=== PATIENT | male | born 1955 | race Caucasian/White ===

== ENCOUNTER 2016-04-08 12:45 | Emergency (ER) | payer OTHER ==
[2016-04-08] VITALS (7 sets, daily range): BP systolic 85–125; BP diastolic 66–90; PULSE 71–85; RESP 16–22; O2SAT 98–100
[~2016-04-08] VITALS: Ht 193 cm; Wt 69.1 kg
--- NOTE | 2016-04-08 13:15 | ED.REPORT ---
HPI-NVD Date of Service Apr 08, 2016 ED Provider: Christine Flower History of Present Illness: decreased appitete, weight loss, decreased strength. symptoms ongoing since December 2015. , lives in 1 story house. no steps. Dr. Shine is primary care. coughing forever quit smoking 7.5 years ago. Saw his partner yesterday, advised admission. Provider took pain pills away last year. now drinks vodka and smokes pot for the pain. Nursing Notes Stated Complaint: LIVER,ANEMIA,WEAKNESS Chief Complaint: Male Abdominal Pain Nursing Notes Reviewed: Yes Allergies: Coded Allergies: No Known Allergies (Unverified , 04/08/16) General Time Seen by MD: 13:14 Chief Complaint Vomiting, Other (coughing vomiting associated with cough) Hx Obtained From: Patient Onset Occurred: More than a week ago... (3 months) Symptom Duration: Since onset Past Medical History Past Medical History Denies: Diabetes mellitus Denies: Atrial fibrillation, Atrial flutter Past Surgical History knee times 3, pilondial cyst, Smoking History Former Smoker (quit smoking 7.5 years ago, still chews chewed while smoking also ) Social History vodka Alcohol Use: >5 per day Drug Use: THC Other Social History: Occupation lives with , no work or school 04/08/2016 Ambulatory Status Independent Review of Systems Basic Review of Systems Eyes: Vision NL, No discharge : No dysuria, No frequency Allergy / Immune: No allergy Psychiatric: Normal thought content Physical Exam Initial Vital Signs Vital Signs (First) Date Time Temp Pulse Resp B/P Pulse Ox O2 Delivery O2 Flow Rate FiO2 04/08/16 12:48 36.2 85 16 113/79 98 Room Air Initial VS: Reviewed, Vital signs normal Head / Eyes: Atraumatic, Normocephalic, PERRL ENT: Mucous membranes moist, Conjunctiva normal, No scleral icterus Neck: Supple, Non-tender, Full range of motion Respiratory: Breath sounds normal, Clear to auscultation, No respiratory distress Cardiovascular: Regular rate & rhythm, Heart sounds normal, Intact distal pulses Back: No CVA tenderness Lymphatic: No lymphadenopathy Extremities: Vascular intact, Neuro intact, No swelling, No tenderness Skin: Warm, Dry, No cyanosis Neurologic: Alert, Oriented, Nonfocal Psychiatric: Mood/affect normal, Behavior normal, Normal thought content General/Constitutional: Awake, Alert, No acute distress, Well appearing, Well developed, Well hydrated Appearance / Presentation: Positive: Appears older than age Abdomen: Atraumatic, Soft, Non-tender, McBurney's non-tender, No guarding, No rebound Bowel Sounds / Distention: Positive: Bowel sounds hypoactive ENT: Atraumatic, Airway patent, Mucous membranes moist, Pharynx NL Respiratory / Chest: Atraumatic, Breath sounds NL, Breath sounds = bilat Cardiovascular: Heart rate NL, Regular rhythm, Heart sounds NL, No gallop Neck: Atraumatic, Supple, No meningismus no external hemorrhoids, dark blood by rectal opening. digital exam shows reddish brown blood, Interpretation & Diagnostics Interpretation & Diagnostics: ROCEDURE: CT NECK/CHEST/ABD/PEL W/CONT ([id number]-7506) INDICATIONS: cough weight loss, anemia TECHNIQUE: After the administration of oral and intravenous contrast, 3.0 mm axial sections acquired from the sella to the aortic arch, with 3.0 mm thick coronal reformats. Additional oblique axial 3.0 mm sections acquired through the pharynx. 5 mm thick axial sections then acquired from the lung apices to the symphysis, with subsequent 5 mm thick coronal and sagittal reformats, and 7 mm thick coronal MIP reformats through the lungs. For radiation dose reduction, the following was used: automated exposure control, adjustment of mA and/or kV according to patient size. COMPARISON: None. FINDINGS: Image quality: Excellent. NECK: Lymph nodes: No enlarged lymph nodes seen throughout the neck. Vessels: Visualized vasculature appears patent. Neck spaces: The oropharynx, nasopharynx, and pharynx demonstrate no mucosal lesions. The vocal cords, false vocal cords, pyriform sinuses, epiglottis, vallecular, and tongue base all appear normal. Extramucosal neck spaces appear unremarkable. Glands: Parotid and submandibular glands appear normal. Thyroid gland is unremarkable. Miscellaneous: Visualized brain and orbits appear unremarkable. Superficial soft tissues appear normal. Visualized sinuses demonstrate near-complete opacification of the right maxillary sinus. Small mucous retention cyst versus polyp is noted within the left maxillary sinus. CHEST: Lungs and pleura: Slight appearance of groundglass opacity in the medial anterior aspect of the left lower lobe. No pleural effusions or pneumothorax. Central and peripheral airways are patent and normal in caliber. Mediastinum: Heart size is normal. No pericardial effusion. No mediastinal or hilar adenopathy by size criteria. Thoracic aorta and central pulmonary arteries are normal in size. Esophagus is normal in size. No hiatal hernia. Chest wall: No axillary adenopathy by size criteria. ABDOMEN: Solid organs: Liver is enlarged with steatosis. There are five low attenuation foci the largest measuring 16 mm in the inferior posterior right hepatic lobe. Hounsfield unit is suggestive of simple cysts. The spleen is unremarkable Gallbladder demonstrates luminal calcifications without wall thickening. Biliary system is non dilated. Pancreas enhances normally. No adrenal nodules. Both kidneys are normal in size and enhancement, without hydronephrosis. There is incidental note of a retroaortic left renal vein. Peritoneum and bowel: Bowel loops are nonobstructed. There is a minimal appearance of thickening within the duodenal C-loop with a trace appearance of adjacent fluid. Mild thickened appearance is present within the pylorus. However, it is also incompletely distended. No free fluid or air. Colonic diverticula are present without associated inflammatory change. There is a mild appearance of circumferential thickening of the rectum with incomplete distention. Nodes and vessels: No retroperitoneal or mesenteric adenopathy by size criteria. Aorta and inferior vena cava are normal in caliber. Miscellaneous: No ventral hernias. PELVIS: Genitourinary: Bladder wall thickness is normal. Miscellaneous: No inguinal hernias or adenopathy. Bones: No suspicious bony lesions. No vertebral body compression fractures. IMPRESSION: 1. Diverticulosis. 2. Multiple hepatic low attenuation foci with the largest most suggestive of hepatic cysts. The smaller lesions are too small to definitively characterize. 3. Thickened appearance of the duodenal C-loop with a trace amount of adjacent fluid. This could represent a focal area of duodenalitis. 4. Mild circumferential thickening of the rectum. This could be secondary to incomplete distention. Interval followup is recommended as clinically indicated. No focal mass is identified. 5. Mild appearance of thickening with the pylorus. This could be secondary to incomplete distention. Recommend interval followup as clinically indicated. 5. Cholelithiasis without imaging evidence of cholecystitis. Dictated by: Janay Beyer M.D. on 04/08/2016 at 17:26 Approved by: Janay Beyer M.D. on 04/08/2016 at 17:34 Lab Results Interpretation Result Diagram: 04/08/16 1325 04/08/16 1325 Test 2/23/17 13:25 04/08/16 14:00 White Blood Count 5.3th/mm3 (3.8-10.1) Red Blood Count 2.63mil/mm3 (4.40-5.80) Hemoglobin 7.9g/dL (13.8-17.2) Hematocrit 25.4% (41.0-50.0) Mean Corpuscular Volume 96.6fL (81-100) Mean Corpuscular Hemoglobin 30.0pg (27.0-35.0) Mean Corpuscular Hemoglobin Concent 31.1% (32.0-37.0) Red Cell Distribution Width 19.1% (12.3-15.4) Platelet Count 281bil/L (150-400) Neutrophils (%) (Auto) 46.5% (40-74) Lymphocytes (%) (Auto) 40.2% (14-46) Monocytes (%) (Auto) 9.3% (4-12) Eosinophils (%) (Auto) 3.2% (0-5) Basophils (%) (Auto) 0.6% (0-3) Sodium Level 138mEq/L (134-144) Potassium Level 3.8mEq/L (3.5-5.2) Chloride Level 96mEq/L (97-108) Carbon Dioxide Level 25mmol/L (18-29) Blood Urea Nitrogen 8mg/dL (8-27) Creatinine 0.56mg/dL (0.76-1.27) Estimat Glomerular Filtration Rate 158mL/min (>59) Glucose Level 112mg/dL (60-99) Lactic Acid Level 3.7mmol/L (0.4-2.0) Calcium Level 8.5mg/dL (8.5-10.1) Magnesium Level 1.5mg/dL (1.6-2.6) Total Bilirubin 0.4mg/dL (0.0-1.2) Aspartate Amino Transf (AST/SGOT) 52U/L (0-50) Alanine Aminotransferase (ALT/SGPT) 11U/L (0-44) Alkaline Phosphatase 111U/L (25-160) Troponin T < 0.010ug/L (0.0-0.011) Pro-B-Type Natriuretic Peptide 165.8pg/mL (0-210) Total Protein 6.4g/dL (6.4-8.4) Albumin 3.5g/dL (3.4-5.0) Lipase 29U/L (13-60) Thyroid Stimulating Hormone (TSH) 3.390uIU/mL (0.450-4.500) Hold Hoskins Top Tube Received (Received) Urine Color Yellow (YELLOW) Urine Appearance Cloudy (CLEAR,HAZY) Urine pH 5.5 (5.0-8.0) Urine Specific [place] 1.030 (1.003-1.035) Urine Protein Negativemg/dL (NEG,TRACE) Urine Glucose (UA) Negativemg/dL (NEGATIVE) Urine Ketones Negativemg/dL (NEGATIVE) Urine Occult Blood Trace (NEGATIVE) Urine Nitrite Negative (NEGATIVE) Urine Bilirubin Negative (NEGATIVE) Urine Urobilinogen Normalmg/dL (NORMAL) Urine Leukocyte Esterase Negative (NEGATIVE) Urine RBC 0-2/hpf (0-2) Urine WBC 0-5/hpf (0-5) Urine Epithelial Cells Occasional/hpf (NONE-MOD) Urine Crystals Amorphous urates (NONE Urine Bacteria Few/hpf (NONE-FEW) Urine Hyaline Casts None/lpf (NONE) Urine Granular Casts None seen (NONE SEEN) Urine Waxy Casts None seen (NONE SEEN) Urine Red Blood Cell Casts None seen (NONE SEEN) Urine White Blood Cell Casts None seen (NONE SEEN) Urine Mucus None seen (None Seen) Urine Trichomonas None seen (NONE SEEN) Urine Yeast None (NONE SEEN) Urinalysis Comment None Urine Culture Reflexed Not indicated X-Ray Chest Interpretation Chest Xray Interpretation: NDICATIONS: cough weight loss, decreased appetite TECHNIQUE: 2 views of the chest were acquired. COMPARISON: None. FINDINGS: Surgical changes and devices: None. Lungs and pleura: No pleural effusions or pneumothorax. Lungs are clear. Mediastinum: Mediastinal contours are normal. Heart size is normal. Bones and chest wall: No suspicious bony abnormalities. Soft tissues appear unremarkable. IMPRESSION: No acute pulmonary process. Re-Eval/Medical Decision Med Decision/Clinical Course 60 year old male with chronic blood loss. Tranfused [address] does not reveal focal findings. Exam indicates lower GI bleeding, will need colonscopy. Exam is not consistent with appendicitis, or pancreatisis or ulcerative colitis Discharge & Departure Impression: Primary Impression: Anemia Iron deficiency anemia type: chronic blood loss Additional Impression: Lower GI bleed Disposition: Home Additional Instructions: Except for your h and H , your labs are fine. The CT scan from your neck to your rectum did not turn up anything obvious. The rectal exam did show you had blood on exam. You will need a colonscopy to take a look. Please call Dr. Shine and have him order one. Follow the prep as directed. A good prep is important. NEED to start moving, use it or lose it. REturn with any changes or concerns. Referrals: Jayden Shine MD EDSupervising Provider for APC: Emery Ponce MD copies to: Jayden Shine MD, Sue ARNP Apr 08, 2016 13:15
[2016-04-08 13:35] LABS: BASOPHILS % (AUTO) 0.6 % (0-3); Mean Corpuscular Volume 96.6 fL (81-100)
[2016-04-08 13:43] LABS: EOSINOPHILS % (AUTO) 3.2 % (0-5); MONOCYTES % (AUTO) 9.3 % (4-12); NEUTROPHILS % (AUTO) 46.5 % (40-74); Platelet Count 281 bil/L (150-400)
[2016-04-08 13:58] LABS: Magnesium 1.5 mg/dL (1.6-2.6)
[2016-04-08 14:20] LABS: TROPONIN T < 0.010 ug/L (0.0-0.011)
--- NOTE | 2016-04-08 14:46 | DRSVH ---
PROCEDURE: X-RAY CHEST, TWO VIEWS ([id number]) INDICATIONS: cough weight loss, decreased appetite TECHNIQUE: 2 views of the chest were acquired. COMPARISON: None. FINDINGS: Surgical changes and devices: None. Lungs and pleura: No pleural effusions or pneumothorax. Lungs are clear. Mediastinum: Mediastinal contours are normal. Heart size is normal. Bones and chest wall: No suspicious bony abnormalities. Soft tissues appear unremarkable. IMPRESSION: No acute pulmonary process. Dictated by: Janay Beyer M.D. on 04/08/2016 at 14:44 Approved by: Janay Beyer M.D. on 04/08/2016 at 14:45
[2016-04-08 14:47] LABS: APPEARANCE,URINE CLOUDY (CLEAR,HAZY); COLOR,URINE YELLOW (YELLOW); OCCULT BLOOD,URINE TRACE (NEGATIVE); PH,URINE 5.5 (5.0-8.0)
[2016-04-08 14:49] LABS: UROBILINOGEN,URINE NORMAL (NORMAL)
[2016-04-08] MEDS ORDERED: Iohexol 300 mg/mL 30 mL Inj PO ONE (15:55)
--- NOTE | 2016-04-08 17:35 | DRSVH ---
PROCEDURE: CT NECK/CHEST/ABD/PEL W/CONT ([id number]) INDICATIONS: cough weight loss, anemia TECHNIQUE: After the administration of oral and intravenous contrast, 3.0 mm axial sections acquired from the se lla to the aortic arch, with 3.0 mm thick coronal reformats. Additional oblique axial 3.0 mm section s acquired through the pharynx. 5 mm thick axial sections then acquired from the lung apices to the symphysis, with subsequent 5 mm thick coronal and sagittal reformats, and 7 mm thick coronal MIP refo rmats through the lungs. For radiation dose reduction, the following was used: automated exposure c ontrol, adjustment of mA and/or kV according to patient size. COMPARISON: None. FINDINGS: Image quality: Excellent. NECK: Lymph nodes: No enlarged lymph nodes seen throughout the neck. Vessels: Visualized vasculature appears patent. Neck spaces: The oropharynx, nasopharynx, and pharynx demonstrate no mucosal lesions. The vocal cor ds, false vocal cords, pyriform sinuses, epiglottis, vallecular, and tongue base all appear normal. Extramucosal neck spaces appear unremarkable. Glands: Parotid and submandibular glands appear normal. Thyroid gland is unremarkable. Miscellaneous: Visualized brain and orbits appear unremarkable. Superficial soft tissues appear nor mal. Visualized sinuses demonstrate near-complete opacification of the right maxillary sinus. Small mucous retention cyst versus polyp is noted within the left maxillary sinus. CHEST: Lungs and pleura: Slight appearance of groundglass opacity in the medial anterior aspect of the left lower lobe. No pleural effusions or pneumothorax. Central and peripheral airways are patent and norm al in caliber. Mediastinum: Heart size is normal. No pericardial effusion. No mediastinal or hilar adenopathy by size criteria. Thoracic aorta and central pulmonary arteries are normal in size. Esophagus is lorenza l in size. No hiatal hernia. Chest wall: No axillary adenopathy by size criteria. ABDOMEN: Solid organs: Liver is enlarged with steatosis. There are five low attenuation foci the largest garcía uring 16 mm in the inferior posterior right hepatic lobe. Hounsfield unit is suggestive of simple cys ts. The spleen is unremarkable Gallbladder demonstrates luminal calcifications without wall thickenin g. Biliary system is non dilated. Pancreas enhances normally. No adrenal nodules. Both kidneys ar e normal in size and enhancement, without hydronephrosis. There is incidental note of a retroaortic l eft renal vein. Peritoneum and bowel: Bowel loops are nonobstructed. There is a minimal appearance of thickening wit hin the duodenal C-loop with a trace appearance of adjacent fluid. Mild thickened appearance is prese nt within the pylorus. However, it is also incompletely distended. No free fluid or air. Colonic di verticula are present without associated inflammatory change. There is a mild appearance of circumfer ential thickening of the rectum with incomplete distention. Nodes and vessels: No retroperitoneal or mesenteric adenopathy by size criteria. Aorta and inferior vena cava are normal in caliber. Miscellaneous: No ventral hernias. PELVIS: Genitourinary: Bladder wall thickness is normal. Miscellaneous: No inguinal hernias or adenopathy. Bones: No suspicious bony lesions. No vertebral body compression fractures. IMPRESSION: 1. Diverticulosis. 2. Multiple hepatic low attenuation foci with the largest most suggestive of hepatic cysts. The small er lesions are too small to definitively characterize. 3. Thickened appearance of the duodenal C-loop with a trace amount of adjacent fluid. This could repr esent a focal area of duodenalitis. 4. Mild circumferential thickening of the rectum. This could be secondary to incomplete distention. I nterval followup is recommended as clinically indicated. No focal mass is identified. 5. Mild appearance of thickening with the pylorus. This could be secondary to incomplete distention. Recommend interval followup as clinically indicated. 5. Cholelithiasis without imaging evidence of cholecystitis. Dictated by: Janay Beyer M.D. on 04/08/2016 at 17:26 Approved by: Janay Beyer M.D. on 04/08/2016 at 17:34
[2016-04-08] MEDS ORDERED: 0.9% Sodium Chloride 250 ML ONE (18:32)
== END 2016-04-08 20:36 | disposition home or self-care (01) ==
LOC: SED 12:45
DX: D50.0 Iron deficiency anemia secondary to blood loss (chronic) (principal); K92.2 Gastrointestinal hemorrhage, unspecified; F17.220 Nicotine dependence, chewing tobacco, uncomplicated; F12.10 Cannabis abuse, uncomplicated; Z87.891 Personal history of nicotine dependence
CPT/HCPCS: 36415; 36430; 70491; 71020; 71260; 74177; 80053; 81000; 82272; 83605; 83690; 83735; 83880; 84443; 84484; 85025; 86850; 86922; 93005; 99285; J7050; P9021; Q9967

== ENCOUNTER 2016-05-16 13:29 | Inpatient (IN) | payer MEDICARE, OTHER ==
[~2016-05-16] VITALS: Ht 193 cm; Wt 69.1 kg
[2016-05-16] VITALS (8 sets, daily range): BP systolic 90–114; BP diastolic 50–74; PULSE 70–91; RESP 16–20; O2SAT 97–100
--- NOTE | 2016-05-16 14:15 | ED.REPORT ---
HPI-Stroke / CVA May 16, 2016 ED Provider: Doc,Ed MD History of Present Illness: 60-year-old male here for lightheadedness, altered mental status, dizziness with standing. Today he was sitting in his chair, went to stand up and got lightheaded and dizzy and his knees buckled on him and he slumped to the ground. He did not hit his head he did not injure himself. He never lost consciousness. His son states his face was droopy when he first got there. His family states he was speaking nonsense for about 15 minutes prior to the fall. This has resolved. He was seen in the ER a month ago and received a blood transfusion. He has not had his colonoscopy or EGD. He denies noting blood in the stool. He has a history of what sounds like COPD but he has not had a change in sputum production or color. Nonsmoker now, hx of smoking, quit 7 yrs ago. He denies shortness of breath chest pain or headache. He states that he has not been eating well the last year and a half and has had 100 pound weight loss. He does state he is depressed related to the fact he is no longer able to do the things he used to do related to a right shoulder injury. Denies pain with urination but notes his urine is dark. No nausea, vomiting, diarrhea. Last BM was 2 days ago and normal. No back pain, neck pain. His right knee is moderately painful. 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 in Onset?: Yes Progression Since Onset: Gradually improving Severity: Current: Moderate Severity: Maximum: Moderate Additional Notes: Pain in R shoulder, chronic Relieved by: Position Recent Healthcare: No recent doctor visit Similar Sx Previous: No Risk Factors )( CVA Risk Stratification Age >60 EtOH use Past Medical History Past Surgical History knee times 3, pilondial cyst, Smoking History Former Smoker Social History vodka Alcohol Use: >5 per day Drug Use: THC Other Social History: Occupation lives with , no work or school 04/08/2016 Ambulatory Status Independent Review of Systems Constitutional: Reports: Fatigue, Denies: Fever Eyes: Denies: Blurred bilateral, Visual loss bilateral Respiratory: Denies: Dyspnea on exertion, Non-productive cough Cardiovascular: Denies: Chest pain, Dyspnea on exertion, Edema GI: Reports: Anorexia, Denies: Abdominal pain, Melena, Nausea, Vomiting Musculoskeletal: Reports: Extremity swelling, Denies: Back pain Neurologic: Reports: Lightheaded, Problem walking, Denies: Headache, Syncope Psychiatric: Reports: Anxiety, Depression, Insomnia Complete sys rev & neg: except as marked. Male: Reports Urination decreased, Denies Dysuria Physical Exam Initial Vital Signs Vital Signs (First) Date Time Temp Pulse Resp B/P Pulse Ox O2 Delivery O2 Flow Rate FiO2 05/16/16 13:36 36.0 91 16 90/56 100 Room Air Initial VS: Reviewed ENT: Mucous membranes moist Abdomen / GI: Soft, Non-tender, No guarding, No rebound, No distention Lymphatic: No lymphadenopathy Extremities: Vascular intact, Neuro intact, No swelling, No tenderness Skin: Warm, Dry, No cyanosis Psychiatric: Mood/affect normal, Behavior normal, Normal thought content General/Constitutional: Awake, Alert, No acute distress, Well appearing, Well developed, Not toxic appearing Head / Eyes: Normocephalic, PERRL, EOMI conjunctiva pale Neck: Supple, Full range of motion, No swelling, Non-tender, No carotid bruit Respiratory / Chest: Atraumatic, Breath sounds = bilat, No respiratory distress Wheezing / Retractions: Positive: Wheeze insp/exp diffuse Cardiovascular: Heart rate NL, Regular rhythm, Heart sounds NL, No murmurs, Peripheral circulation NL Neurologic: Oriented X3, Speech NL, No motor deficits, No sensory deficits, CN II - XII intact, Reflexes equal bilat, Cerebellar NL ENT: Airway patent, Mucous membranes moist, Pharynx NL Abdomen: Soft, Non-tender, No guarding, No rebound Upper Extremity / MS: Atraumatic, Inspection NL Right Shoulder: Positive: ROM reduced, Tenderness present... (Moderate), Negative: Erythema present, Warmth present Lower Extremity / Pelvis / MS: Atraumatic, Inspection NL, Full range of motion Right Knee: Positive: ROM painful, ROM reduced, Tenderness present... (Moderate ), Negative: Ecchymosis present, Erythema present, Joint effusion present, Warmth present Left Knee: Positive: Medial collat lig tender Skin: Atraumatic, Color NL Rash / Lesion Notes: Erythematous macules noted on lower extremities nontender Psychiatric: Affect NL, Mood NL, Not suicidal lightly guiac positive, nontender exam. Interpretation & Diagnostics Lab Results Interpretation Result Diagram: 05/16/16 1400 05/16/16 1400 Test 05/16/16 14:00 White Blood Count 7.5th/mm3 (3.8-10.1) Red Blood Count 2.46mil/mm3 (4.40-5.80) Hemoglobin 7.1g/dL (13.8-17.2) Hematocrit 21.5% (41.0-50.0) Mean Corpuscular Volume 87.4fL (81-100) Mean Corpuscular Hemoglobin 28.9pg (27.0-35.0) Mean Corpuscular Hemoglobin Concent 33.0% (32.0-37.0) Red Cell Distribution Width 17.7% (12.3-15.4) Platelet Count 404bil/L (150-400) Neutrophils (%) (Auto) 75.9% (40-74) Lymphocytes (%) (Auto) 14.5% (14-46) Monocytes (%) (Auto) 8.5% (4-12) Eosinophils (%) (Auto) 0.5% (0-5) Basophils (%) (Auto) 0.1% (0-3) Sodium Level 133mEq/L (134-144) Potassium Level 3.3mEq/L (3.5-5.2) Chloride Level 85mEq/L (97-108) Carbon Dioxide Level 19mmol/L (18-29) Blood Urea Nitrogen 11mg/dL (8-27) Creatinine 0.69mg/dL (0.76-1.27) Estimat Glomerular Filtration Rate 124mL/min (>59) Glucose Level 132mg/dL (60-99) Calcium Level 8.0mg/dL (8.5-10.1) Total Bilirubin 1.5mg/dL (0.0-1.2) Aspartate Amino Transf (AST/SGOT) 64U/L (0-50) Alanine Aminotransferase (ALT/SGPT) 17U/L (0-44) Alkaline Phosphatase 137U/L (25-160) Troponin T < 0.010ug/L (0.0-0.011) Total Protein 7.6g/dL (6.4-8.4) Albumin 3.3g/dL (3.4-5.0) Hold Red Top Tube Received (Received) Hold Hoskins Top Tube Received (Received) Alcohols 13mg/dL (0-10) Re-Eval/Medical Decision Med Decision/Clinical Course Dr ponce consulted. ORthostatics- lying HR 70, BP 114/50 sitting HR 85 BP 106/57 could not tolerate standing. 2 units PRBC ordered. Pt continues to be well without complaints, VS stable. ready for admit hospitalist consulted- chantal, will admit Patient Discharge & Departure Shift Change Sign-Out Laboratory Evaluation: Lab evaluation discussed Imaging Studies: Imaging discussed Response to Therapy: Improved Impression: Primary Impression: Anemia Anemia type: unspecified type Qualified Code: D64.9 - Anemia, unspecified Additional Impressions: Lower GI bleed Dizziness Disposition: ADMITTED TO HOSPITAL Discharge Condition All VS Reviewed: Yes Condition: Stable Referrals: Jayden Shine MD (PCP) Gurinder Bobby EDSupervising Provider for APC: Emery Ponce MD copies to: Jayden Shine MD; Emery Ponce MD; Gurinder Bobby Linnea K ARNP May 16, 2016 14:15
[2016-05-16 14:25] LABS: BASOPHILS % (AUTO) 0.1 % (0-3); EOSINOPHILS % (AUTO) 0.5 % (0-5); MONOCYTES % (AUTO) 8.5 % (4-12); Mean Corpuscular Hemoglobin 28.9 pg (27.0-35.0); Mean Corpuscular Volume 87.4 fL (81-100); NEUTROPHILS % (AUTO) 75.9 % (40-74); Platelet Count 404 bil/L (150-400)
[2016-05-16] MEDS ORDERED: 0.9% Sodium Chloride 1,000 ML IV ONE (14:32)
--- NOTE | 2016-05-16 14:57 | DRSVH ---
PROCEDURE: CT BRAIN WITHOUT CONTRAST ([id number]) INDICATIONS: dizziness/AMS TECHNIQUE: Noncontrast 4.5 mm thick angled axial sections acquired from the foramen magnum to the vertex, with c oronal reformats. COMPARISON: None. FINDINGS: Image quality: Excellent. CSF spaces: Basal cisterns are patent. No extra-axial fluid collections. The ventricles are symmet socorro in size and shape. Brain: No intracranial bleeds or masses. There is cerebral volume loss for age, with resultant vent ricular and sulcal prominence. There are periventricular and deep white matter chronic small vessel ischemic changes. There is intracranial internal carotid artery atherosclerosis. Skull and face: Calvarium and visualized facial bones appear intact, without suspicious lesions. Sinuses: Moderate left and severe right maxillary sinus mucosal thickening. Mastoids clear. IMPRESSION: No acute process. Dictated by: Abi Orellana M.D. on 05/16/2016 at 14:55 Approved by: Abi Orellana M.D. on 05/16/2016 at 14:56
[2016-05-16 15:04] LABS: TROPONIN T < 0.010 ug/L (0.0-0.011)
--- NOTE | 2016-05-16 15:28 | DRSVH ---
PROCEDURE: X-RAY CHEST ONE VIEW, PORTABLE ([id number]) INDICATIONS: dizziness TECHNIQUE: One view of the chest was acquired. COMPARISON: None. FINDINGS: Surgical changes and devices: None. Lungs and pleura: No pleural effusions or pneumothorax. Lungs are clear. Mediastinum: Mediastinal contours appear normal. Heart size is normal. Bones and chest wall: No suspicious bony lesions. Overlying soft tissues appear unremarkable. IMPRESSION: No acute process. Dictated by: Abi Orellana M.D. on 05/16/2016 at 15:27 Approved by: Abi Orellana M.D. on 05/16/2016 at 15:27
[2016-05-16] MEDS ORDERED: Ondansetron 2 mg/mL 2 mL Inj IVPUSH PRN (17:50)
[2016-05-16] MEDS ORDERED: Alum-Mag Hydrox-Simeth 30 mL Suspension PO PRN ×2 (17:50→18:10)
[2016-05-16] MEDS ORDERED: Labetalol 5 mg/mL 4 mL Inj IVPUSH PRN (18:10)
[2016-05-16] MEDS ORDERED: Polyethylene Glycol (PEG) 17 Gm Powder PO PRN (18:10)
[2016-05-16] MEDS ORDERED: Ondansetron 2 mg/mL 2 mL Inj IV PRN (18:10)
[2016-05-16] MEDS ORDERED: Thiamine Inj 100 MG, Folic Acid Inj 1 MG, Magnesium Sulfate 50% Inj 2 GM, Multivitamins... IV ONE ×5 (18:10)
[2016-05-16 19:03] LABS: APPEARANCE,URINE CLEAR (CLEAR,HAZY); COLOR,URINE ORANGE (YELLOW)
--- NOTE | 2016-05-16 19:05 | PCM.HPMED ---
Subjective Date of Service May 16, 2016 Primary Provider: Admitting Physician: Gurinder Bobby Primary Care Physician: Jayden Shine MD Attending Physician: Gregorio Haque MD Chief Complaint: slurred speech, weakness, fall History of Present Illness: 60 year old male with past history notable for hypertension, alcohol abuse, previous smoker (quit 7 years ago) on no home medications presents with transient episode of slurred speech, altered mental status and fall. His family notes that patient's problems really started about a year ago when he started having decreased appetite and since then has lost about 80 pounds. Over the past month he has been increasingly more pale and weak. About one month ago he saw his PCP and was found to be significantly anemic. Per his family's report he was sent to our ED where he was transfused one unit of PRBC and sent home without admission. Today he was in his usual state of health and sitting his chair when his noticed that he looked pale. She asked him how he was doing but patient appeared to answer "nonsense" and in a very slurred speech. Patient then tried to stand up but fell to his knees without hitting his head or passing out. She called her son for help who noticed that patient was having some right facial droop. Patient does not recall any of these events but recall being helped up from the floor by his son. On their way to the hospital his speech and thought process acutely returned back to baseline. In the ED his lab work is notable for evidence of anemia and his stool guaiac was noted to be trace positive. Patient denies any history of melena, hematochezia, hematemesis or coffee ground emesis but does not occasional nausea and bringing up clear or bile colored vomit. He has never had any type of endoscopy but has been referred to GI by his PCP but he says he has not been able to see the specialist due to insurance and financial issues. He further reports chronic bilateral lower extremity numbness, paresthesia and weakness ( at least for the past year) without any clear explanation or diagnosis so far. He admits to drinking alcohol (mostly vodka) regularly (with his last drink early this morning) which he says is to take away his ongoing right shoulder pain. He also endorses occasional episodes of shakes and tremor when he has not had alcohol for few days. He also reports chronic asthma/COPD with associated SOB which has not been any worse than usual recently. Allergies Coded Allergies: No Known Drug Allergies (Verified Allergy, Unknown, 05/16/16) Home Medications Denies taking any meds Exam Vital Signs & I/O Vital Sign- Last 8 Hours Date Time Temp Pulse Resp B/P Pulse Ox O2 Delivery O2 Flow Rate FiO2 05/16/16 16:25 36.4 74 18 106/74 97 Room Air 05/16/16 15:55 85 20 106/57 100 05/16/16 15:50 70 17 114/50 100 05/16/16 13:36 36.0 91 16 90/56 100 Room Air Lab & Micro Results Laboratory Tests Test 05/16/16 14:00 05/16/16 18:05 White Blood Count 7.5th/mm3 (3.8-10.1) Red Blood Count 2.46mil/mm3 (4.40-5.80) Hemoglobin 7.1g/dL (13.8-17.2) Hematocrit 21.5% (41.0-50.0) Mean Corpuscular Volume 87.4fL (81-100) Mean Corpuscular Hemoglobin 28.9pg (27.0-35.0) Mean Corpuscular Hemoglobin Concent 33.0% (32.0-37.0) Red Cell Distribution Width 17.7% (12.3-15.4) Platelet Count 404bil/L (150-400) Neutrophils (%) (Auto) 75.9% (40-74) Lymphocytes (%) (Auto) 14.5% (14-46) Monocytes (%) (Auto) 8.5% (4-12) Eosinophils (%) (Auto) 0.5% (0-5) Basophils (%) (Auto) 0.1% (0-3) Sodium Level 133mEq/L (134-144) Potassium Level 3.3mEq/L (3.5-5.2) Chloride Level 85mEq/L (97-108) Carbon Dioxide Level 19mmol/L (18-29) Blood Urea Nitrogen 11mg/dL (8-27) Creatinine 0.69mg/dL (0.76-1.27) Estimat Glomerular Filtration Rate 124mL/min (>59) Glucose Level 132mg/dL (60-99) Calcium Level 8.0mg/dL (8.5-10.1) Total Bilirubin 1.5mg/dL (0.0-1.2) Aspartate Amino Transf (AST/SGOT) 64U/L (0-50) Alanine Aminotransferase (ALT/SGPT) 17U/L (0-44) Alkaline Phosphatase 137U/L (25-160) Troponin T < 0.010ug/L (0.0-0.011) Total Protein 7.6g/dL (6.4-8.4) Albumin 3.3g/dL (3.4-5.0) Hold Red Top Tube Received (Received) Hold [place] Top Tube Received (Received) Alcohols 13mg/dL (0-10) Urine Color [place] (YELLOW) Urine Appearance Clear (CLEAR,HAZY) Urine pH (5.0-8.0) Urine Specific [place] 1.024 (1.003-1.035) Urine Protein mg/dL (NEG,TRACE) Urine Glucose (UA) mg/dL (NEGATIVE) Urine Ketones mg/dL (NEGATIVE) Urine Occult Blood (NEGATIVE) Urine Nitrite (NEGATIVE) Urine Bilirubin (NEGATIVE) Urine Urobilinogen mg/dL (NORMAL) Urine Leukocyte Esterase (NEGATIVE) Urine RBC 0-2/hpf (0-2) Urine WBC 0-5/hpf (0-5) Urine Epithelial Cells Moderate/hpf (NONE-MOD) Urine Crystals None seen (NONE SEEN) Urine Bacteria None/hpf (NONE-FEW) Urine Hyaline Casts None/lpf (NONE) Urine Granular Casts None seen (NONE SEEN) Urine Waxy Casts None seen (NONE SEEN) Urine Red Blood Cell Casts None seen (NONE SEEN) Urine White Blood Cell Casts None seen (NONE SEEN) Urine Mucus None seen (None Seen) Urine Trichomonas None seen (NONE SEEN) Urine Yeast None (NONE SEEN) Urinalysis Comment Color interference Urine Culture Reflexed Not indicated Result Diagram: 05/16/16 1400 05/16/16 1400 Review of Systems: Constitutional: Negative, except as otherwise mentioned in the history above. Ophthalmologic: Negative, except as otherwise mentioned in the history above. Cardiovascular: Negative, except as otherwise mentioned in the history above. Respiratory: Negative, except as otherwise mentioned in the history above. Gastrointestinal: Negative, except as otherwise mentioned in the history above. Genitourinary: Negative, except as otherwise mentioned in the history above. Musculoskeletal: Negative, except as otherwise mentioned in the history above. Neurological: Negative, except as otherwise mentioned in the history above. Psychiatric: Negative, except as otherwise mentioned in the history above. Hematologic/Lymphatic: Negative, except as otherwise mentioned in the history above. Allergic/Immunologic: Negative, except as otherwise mentioned in the history above. PMH 1. asthma 2. COPD 3. Hypertension (has been off of BP meds for the past year after losing weight) 4. chronic right shoulder pain 5. Chronic bilateral lower extremity weakness and paresthesia of unclear etiology 6. Ongoing anemia (unclear etiology) 7. Weight loss and decreased appetite as noted in HPI Family History mother with some sort of GI cancer brother from complications of diabetes Social History Hx Alcohol Use: Yes (vodka almost daily) Hx Substance Use: Yes (smokes marijuana occasionally) Smoking Status: Former Smoker (quit 7 years ago) Living Arrangement: with Family Exam Vital Signs Vital Sign - Last Date Time Temp Pulse Resp B/P Pulse Ox O2 Delivery O2 Flow Rate FiO2 05/16/16 16:25 36.4 74 18 106/74 97 Room Air General: Alert, Oriented X3, Cooperative, No Acute Distress Head: Normal Eyes: PERRLA, EOMI, Scleral Anicteric Nose: Mucous Membr Moist/[place] Mouth: Mucous Membr Moist/[place] Neck: Supple Chest & Lungs: Chest Wall Normal, Clear to auscultation & percussion Cardiovascular: Regular Rate/Rhythm Pulses: NL carotid, radial, femoral, DP, PT Abdomen: Non-tender, Non-distended, Normoactive bowel tones, Soft Extremities: No cyanosis/clubbing/edma bilat Neurological: Grossly Neurologically Intact, Cranial Nerves 2-12 Intact, Normal Speech, Strength Normal 4/4 ext (UE and LE bilat), Sensation Intact Additional Information: no significant lymphadenopathy normal mood and affect Lab and Diagnostics Result Diagram: 05/16/16 1400 05/16/16 1400 X-Rays, CTs and MRIs Date of Service: 05/16/16 1432 PROCEDURE: X-RAY CHEST ONE VIEW, PORTABLE ([id number]) IMPRESSION: No acute process. Dictated by: Abi Orelalna M.D. on 05/16/2016 at 15:27 Approved by: Abi Orellana M.D. on 05/16/2016 at 15:27 Date of Service: 05/16/16 1432 PROCEDURE: CT BRAIN WITHOUT CONTRAST ([id number]) IMPRESSION: No acute process. Dictated by: Abi Orellana M.D. on 05/16/2016 at 14:55 Approved by: Abi Orellana M.D. on 05/16/2016 at 14:56 12-lead ECG NSR at about 75 bpm Assessment & Plan 60 year old male with past history notable for hypertension, alcohol abuse, previous smoker (quit 7 years ago) on no home medications presents with transient episode of slurred speech, altered mental status and fall. # Acute transient slurred speech, weakness, fall, and possible right facial droop suspicious for acute TIA. present prior to admission. Currently resolved - admit to tele with TIA/stroke protocol - check MRI/MRA brain - check echo - start Lipitor - check fasting lipid panel - will hold ASA or antiplatelets due to concern for possible GI bleed (noted below) - PT/OT/speech eval - permissive HTN for now # Anemia (unclear chronicity), present on admission. - Hgb currently > 7 so will not transfuse but suspect with IV hydration will drop and so consider transfusion if Hgb<7 - check anemia panel with am labs - check stool guaiac - consider GI consult in am for consideration of endoscopy during this hospital - start Protonix bid and consider changing to IV if npo - clear liquid diet for now # History of alcohol abuse. - no sign of withdrawal at this time although alcohol level is elevated at 13 - start CIWA protocol in anticipation of possible withdrawal # History of hypertension. currently stable - permissive HTN at this time as noted above # History of asthma/COPD. stable - Nebs prn # Acute hypokalemia. poa - replete and f/u - check Mag with am labs # History of weight loss - unclear etiology - workup for now as noted above # Transaminitis. unclear acuity. poa - likely due to history of alcohol use - f/u repeat labs in am Patient is being admitted under observation at this time although suspect that if his h/h continues to drop he will qualify for inpatient status and his length of hospital stay at that time will be greater than 2 midnights. GI Prophylaxis: Proton Pump Inhibitor VTE Prophylaxis: SCDs Resuscitation Status: CPR: Attempt Resuscitation (discussed and verified with the patient) Time spent 65 min Gurinder Bobby May 16, 2016 19:05
--- NOTE | 2016-05-16 19:18 | NUR ---
Admit: Arrived to [facility] @ approx 1800 via stretcher. Transferred self to bed by standing and pivoting. Alert & oriented. Denies pain, dizziness, lightheadedness. Complains of weakness. Shortness of breath @ baseline. Urine collected. SR 77 per secured entrance monitor. Bed in low and locked position, bed rails up x2. Oriented to room and call light system. Encouraged to call for assistance, call-light within reach. at bedside.
[2016-05-16] MEDS: Multivit-Miner-Folic Acid-Iron Tablet PO SCH (20:05)
[2016-05-17] VITALS (24 sets, daily range): BP systolic 70–120; BP diastolic 48–78; PULSE 71–106; RESP 16–20; O2SAT 94–99
--- NOTE | 2016-05-17 02:25 | NUR ---
Hold PRBC/Low K+ & Low Na+ Hb 7.1 >7,Hold PRBC per Dr. Avery. Low K+ 3.3 & Low Na+ 133. Dr. Avery notified at evening, no order given, recheck lab tomorrow.
[2016-05-17 03:56] LABS: Mean Corpuscular Volume 86.9 fL (81-100)
[2016-05-17 03:57] LABS: BASOPHILS % (AUTO) 0.4 % (0-3); EOSINOPHILS % (AUTO) 2.1 % (0-5); MONOCYTES % (AUTO) 10.7 % (4-12); Mean Corpuscular Hemoglobin 28.8 pg (27.0-35.0); NEUTROPHILS % (AUTO) 62.2 % (40-74); Platelet Count 220 bil/L (150-400)
[2016-05-17] MEDS ORDERED: 0.9% Sodium Chloride 250 ML ONE ×2 (04:05→05:56)
[2016-05-17 04:14] LABS: INR 1.28 ratio
--- NOTE | 2016-05-17 04:36 | NUR ---
Low BP,Transfer to [facility] Progressively decreased BP, recent check BP 87/48 at Left arm, 82/56 at right arm. HR83, Low urine output 150ml/8hr, asymptomatic, pt alert and orientedx3, pleasantly talking with RNs, very pale, denies dizziness,vertigo,lightheaded,no active GI bleed noted, denies n/v/abdominal pain, no BM overnight. Dr. Gena colbert, PRBC 2 units which were held at evening per MD, "give now" per MD. 1st unit PRBC administered by charge nurse Shyla Nina, transfer pt to [facility] per MD at 0420, report given to receiving RN at [facility].
[2016-05-17 05:03] LABS: Phosphorus 2.9 mg/dL (2.5-4.9)
[2016-05-17 05:04] LABS: Magnesium 1.4 mg/dL (1.6-2.6); Unsaturated Iron Binding 35.4 ug/dL
[2016-05-17] MEDS: 0.9% Sodium Chloride 250 ML IV SCH (07:25)
--- NOTE | 2016-05-17 07:29 | PCM.PNMED ---
Subjective Date of Service May 17, 2016 Subjective No shakes, weakness, dyspnea, or chest pain. No rectal blood or recent BM. No emesis. HCT 13 Exam Vital Signs Vital Sign - Last Date Time Temp Pulse Resp B/P Pulse Ox O2 Delivery O2 Flow Rate FiO2 05/17/16 06:20 36.7 74 20 92/55 05/17/16 02:46 97 Room Air Intake and Output 05/16/16 05/16/16 05/17/16 Cumulative From/Thru 15:00 23:00 07:00 05/16/16 13:36 - 05/17/16 06:23 Intake Total 1000 ml 983 ml 1983 ml Output Total 200 ml 375 ml 575 ml Balance 1000 ml -200 ml 608 ml 1408 ml Intake Oral 200 ml 200 ml IV Total 1000 ml 483 ml 1483 ml Packed Cells 300 ml 300 ml Output Urine Total 200 ml 375 ml 575 ml # Voids 2 2 Exam Chronically ill. Alert and oriented Anicteric sclera Lungs 2/4 BS, exp wheezing Heart regular, no MGR Abdomen soft, NT No edema PALE IVs and Medications Medications Reviewed: Medications were reviewed in detail Lab and Diagnostics Result Diagram: 05/17/16 03405/17/16 0340 X-Rays, CTs and MRIs Date of Service: 05/16/16 1432 PROCEDURE: X-RAY CHEST ONE VIEW, PORTABLE ([id number]) IMPRESSION: No acute process. Dictated by: Abi Orellana M.D. on 05/16/2016 at 15:27 Approved by: Abi Orellana M.D. on 05/16/2016 at 15:27 Date of Service: 05/16/16 1432 PROCEDURE: CT BRAIN WITHOUT CONTRAST ([id number]) IMPRESSION: No acute process. Dictated by: Abi Orellana M.D. on 05/16/2016 at 14:55 Approved by: Abi Orellana M.D. on 05/16/2016 at 14:56 12-lead ECG NSR at about 75 bpm Assessment & Plan 60 year old male with past history notable for hypertension, alcohol abuse, previous smoker (quit 7 years ago) on no home medications presents with transient episode of slurred speech, altered mental status and fall. # Acute transient slurred speech, weakness, fall, and possible right facial droop suspicious for acute TIA. present prior to admission. Currently resolved - admit to tele with TIA/stroke protocol - check MRI/MRA brain - check echo - start Lipitor - check fasting lipid panel - will hold ASA or antiplatelets due to concern for possible GI bleed (noted below) - PT/OT/speech eval - permissive HTN for now # Acute blood loss Anemia (unclear chronicity), present on admission.Worse over night. Probable liver Dz. - Hgb currently > 7 so will not transfuse but suspect with IV hydration will drop and so consider transfusion if Hgb<7 - check anemia panel with am labs - check stool guaiac - consider GI consult in am for consideration of endoscopy during this hospital - start Protonix bid and consider changing to IV if npo - clear liquid diet for now Protonix and Octreo drips, 3 units PRBC + GI consult. # History of alcohol abuse. - no sign of withdrawal at this time although alcohol level is elevated at 13 - start CIWA protocol in anticipation of possible withdrawal # History of hypertension. currently stable - permissive HTN at this time as noted above # History of asthma/COPD. stable - Nebs prn # Acute hypokalemia. poa - replete and f/u - check Mag with am labs # History of weight loss - unclear etiology - workup for now as noted above # Transaminitis. unclear acuity. poa - likely due to history of alcohol use - f/u repeat labs in am Patient is being admitted under observation at this time although suspect that if his h/h continues to drop he will qualify for inpatient status and his length of hospital stay at that time will be greater than 2 midnights. Pain Evaluation: Adequate Pain Control GI Prophylaxis: Proton Pump Inhibitor VTE Prophylaxis: SCDs VTE Mechanical Devices: Intermittant Pneumatic CD Resuscitation Status: CPR: Attempt Resuscitation (discussed and verified with the patient) Time spent 30 min Vj Wu MD May 17, 2016 07:29
[2016-05-17] MEDS ORDERED: Pantoprazole 40 mg ER24 Tablet PO SCH (07:30)
--- NOTE | 2016-05-17 07:40 | NUR ---
Arrived to PCC/BP/UOP Pt arrived to room 2021 around 0430, pt denying symptoms of low blood count or low BP but agreed to remain bedrest to avoid symptoms. at bedside. Pt finished 1 of 2 units PRBCs ordered, SBP up to 90s after this. Oncoming RN aware of 2nd unit ordered. Pt tolerated transfusion w/out any symptoms. Vitals stable. Per [facility] RN UOP minimal at 150 and bladder scan showing about 100mL residual at 0300. Pt put out 225 total of dark janeth urine.
[2016-05-17] MEDS: Multivit-Miner-Folic Acid-Iron Tablet PO SCH (08:30)
[2016-05-17] MEDS: Pantoprazole Inj 80 MG in 0.9% Sodium Chloride 80 ML IV SCH ×3 (09:19→20:02)
--- NOTE | 2016-05-17 12:52 | NUR ---
Case Management: Clarification of patient status: inpatient per MD order on 05/17/16. Janny Fernandez RN
[2016-05-17] MEDS: Octreotide Inj 500 MCG in 0.9% Sodium Chloride 99 ML IV SCH ×2 (13:24→17:24)
--- NOTE | 2016-05-17 14:12 | NUR ---
NUTRITION ASSESSMENT Assess: 60 YO M admitted for anemia, GI bleed, acute TIA. Pt NPO for procedure today, speech eval pending. Per notes, pt reports weight loss of 80 lbs and loss of appetite. PMHX: Asthma, COPD, HTN, chronic bilateral LE weakness, anemia, reported wt loss. DIET: NPO. LABS: Na 130, K+ 3.3, Cr 0.56, Ca 7.0, Mg 1.4, Alb 2.2 MEDICATIONS: Reviewed. GI: No BM noted. SKIN: No issues noted. ANTHROPOMETRICS: 64.9 kg, BMI 17.4 = underweight, Admit wt: 64.9 kg. IBW: 91.8 kg ESTIMATED NEEDS: WEIGHT GAIN. Calories: 2281-9918 kcal/day (30-35 kcal/kg BW) Protein: 110-138 g/day (1.2-1.5 g/kg IBW) NUTRITION DIAGNOSIS: 1) Inadequate oral intake related to decreased ability to consume sufficient energy as evidenced by NPO status. INTERVENTION: 1) Diet advance per speech therapy. 2) Once diet advanced, will consider addition of supplements/snacks. MONITOR/EVALUATE: NPO status, weight, diet advance, labs, GI, nutritoin status. Follow per moderate nutrition risk guidelines.
--- NOTE | 2016-05-17 14:13 | DRSVH ---
[facility] [address] [place] [address] Echocardiogram Report Name: GABO HUNT RStudy Date : 05/17/2016 Height: 76 in Hospital Exam Location: [facility] Weight: 143 lb Gender: Male BSA: 1.9 m2 : 1955 Age: 60 yrs BP: 92/55 mmHg Reason For Study: Anemia, GI Bleed Ordering Physician: Performed By: [facility] Staff Interpretation Summary Study is limited due to patient body habitus and fractured ribs. 1) Grossly, normal left ventricular thickness, size, and systolic function (EF 55-60%). 2) Grossly, normal right ventricular size and function. 3) No significant valvular abnormalities. 4) No pericardial effusion present. 5) No prior echo available for comparison. Procedure: There is no prior echocardiogram noted for this patient. The study quality was technically difficult. The study quality was technically limited. A two-dimensional transthoracic echocardiogram with color flow and Doppler was performed. The patient was in normal sinus rhythm during the exam. Left Ventricle: The left ventricle is normal in size. There is normal left ventricular wall thickness. The ejection fraction is estimated to be 55-60%. The left ventricular ejection fraction is grossly normal. Right Ventricle: The right ventricle is normal in size and function. Atria: The left atrial size is normal. Right atrial size is normal. The interatrial septum is intact with no evidence for an atrial septal defect. Mitral Valve: The mitral valve is normal in structure and function. There is no mitral valve stenosis. There is trace mitral regurgitation. Aortic Valve: The aortic valve is not well visualized. There is no aortic valve stenosis. No aortic regurgitation is present. Tricuspid Valve: The tricuspid valve is normal in structure and function. There is trace tricuspid regurgitation. Pulmonic Valve: Not visulized. Great Vessels: The aortic root is normal size. The dimensions of the ascending aorta are normal. Not visulized. No subcostal views. Pericardium/ Pleura There is no pericardial effusion. There is no pleural effusion. MMode/2D Measurements & Calculations LVIDd: 4.8 cm RA long axis LVOT diam LVIDs: 3.3 cm LA A2 area: 17.9 cm FS: 30.8 % LA A4 area: 9.6 cm RA area Ao root diam IVSd: 0.96 cm LA length (vol): 4.2 cm : 3.2 cm LVPWd: 0.70 cm LA vol: 34.8 ml : 9.8 cm LA vol index RA vol: 22.2 ml RA : 18.1 ml/m2 : 11.6 mm2 LV mackenzie. diameter/BSA LV sys. diameter/BSA RVD1 (basal) RVD2 (mid) (cm/m^2): 2.5 (cm/m^2): 1.7 : 2.3 cm Doppler Measurements & Calculations Ao V2 max: 75.2 cm/sec Med Peak E' Tristin Ao V2 mean LV V1 max PG Ao max P.3 mmHg : 48.6 cm/sec Ao mean P.1 mmHg Lat Peak E' Tristin Ao V2 VTI LV V1 VTI LVOT Max Tristin : 11.4 cm/sec : 16.8 cm : 72.7 cm/sec GELA(V,D): 4.0 cm2 GELA(I,D): 4.6 cm sev ratio: 1.1 GELA indexed to BSA (cm^2/m^2): 2.4 Reading Physician:02:12 PM
--- NOTE | 2016-05-17 14:42 | PCM.HPANE ---
Patient Data Date of Service: May 17, 2016 Surgeon Admitting Provider:Gurinder Bobby Attending Provider:Gregorio Haque MD Primary Care Physician:Jayden Shine MD Other Provider: Reason for Visit Anemia,Gi Bleed Ht/WT & BMI Height (Feet): 6 Height (Inches): 4.00 Weight (Kilograms): 64.900 Body Mass Index 17.00 Allergies Coded Allergies: No Known Drug Allergies (Verified Allergy, Unknown, 05/17/16) Past Anesthesia History Anesthesia History: Denies:: Abnormal Airway, Anesthesia Reactions, Difficult Intubation Diabetes History Hx Diabetes?: No Current Bedside Blood Glucose: 110 MRSA MRSA: No Medications Hypertension Medication: No Home Meds Incl Beta Debby: No No Active Prescriptions or Reported Meds History History of ENT Problems?: No HEENT History: Denies:: Abnormal Airway Difficult Intubation Hearing Problem Teeth Condition: No Teeth Hx of Heart Problems?: Yes Cardiovascular History: Positive for:: Edema Denies:: Cardiac Surgery Chest Pain Congestive Heart Failure Heart Murmur Hypertension Irregular Heartbeat Pacemaker Thrombophlebitis Hx of Respiratory Problem?: Yes Respiratory History: Positive for:: Asthma COPD Dyspnea Emphysema Denies:: Chest Surgery Hemoptysis Pneumonia Tuberculosis Other Resp Pertinent History: ALBUTEROL 3X DAILY; smoke marijuana 2x qwk Hx Neurologic Problems?: No Neurological History: Positive for:: TIA (DENIES TIA's - no residual) Denies:: CVA Hx of GI Problems?: Yes Gastrointestinal History: Positive for:: Gastrointestinal Bleeding Heartburn Denies:: Diverticulitis Gastroesphageal Reflux Hepatitis Hiatal Hernia Rectal Bleeding Other GI Pertinent History: hemrhoids Hx of Problems?: No Male Hx: Denies:: Prostate Problems Hx Musculoskeletal Problems?: Yes Musculoskeletal History: Positive for:: Musculoskeletal Trauma (rt broken collar bone, rt rotator cuff) Hx of Psycho/Social Problems?: Yes Psycho Social History: Positive for:: Hx Depression Hx Surgeries?: Yes (tailbone, knee) Other History: Positive for:: Hospitalization (ER visit for GI bleed Mar 2016) Denies:: Cancer Thyroid Disease History Blood Transfusions: Positive for:: Accept Blood Products? Blood Transfusions Denies:: Blood Transfuse Reaction Hx Diabetes: NoBedside Blood Glucose: 110 Hx Alcohol Use: Yes (vodka almost daily)Alcoholic Drinks Per Day: 4-5 vodka drinks/dayHx Substance Use: Yes (smokes marijuana occasionally) Smoking Status: Former Smoker Have You Smoked inLast 12 mo: No Stop/Bang Treated for Sleep Apnea?: No Do You Have a CPAP Machine?: No S-Snoring: Do You Snore Loudly: No T-Tired: feel tired, fatigued: Yes O-Obsered: Observed not breath: No P-Blood Pressure: treated: No B- Body Mass Index > 35 kg/m2: No A- Age over 50: Yes N- Neck Large Circumference: No G- Gender Male: Yes JAYLA Total Score: 3 JAYLA Risk Assessment: Low Risk, <3 Yes Risk Assessment Category Category 1A: Patient has history of documented sleep apnea, and HAS NOT received any narcotic, sedative or anesthesia administration during this stay. Category 1B: Patient has history of documented sleep apnea, and HAS received any narcotic , sedative or anesthesia administration during this stay Category 2: Patient has SUSPECTED Obstructive Sleep Apnea, and HAS received any narcotic , sedative or anesthesia administration during this stay. Category 3: Patient has SUSPECTED Obstructive Sleep Apnea and HAS NOT received narcotic, sedative or anesthesia administration during this stay. Category 4: Outpatient in Procedural Areas with known sleep apnea or who screen positive for High Risk via the STOP/BANG questionnaire. Exam Exam Vital Signs Vital Signs Date Time Temp Pulse Resp B/P Pulse Ox O2 Delivery O2 Flow Rate FiO2 05/17/16 14:29 36.5 74 16 98/73 99 Room Air 05/17/16 13:50 37.0 82 92/64 95 05/17/16 12:48 37.1 83 16 120/78 05/17/16 10:05 36.7 76 17 94/63 05/17/16 09:36 36.5 71 17 99/63 05/17/16 08:49 80 05/17/16 08:00 36.8 74 16 94/60 General Appearance: Alert, Oriented X3, Cooperative, No Acute Distress HEENT/AIRWAY: MP 3, Neck Movement (FROM), Mouth Opening (>3), Other (TMD>3) Lungs: Coarse, Wheezes Heart: Exam Unremarkable, Regular Rate/Rhythm, Normal S1, Normal S2, No Murmurs /Rubs/Gallops Meds/Labs/Diagnostics Admission Meds Current Medications Atorvastatin Calcium (Lipitor) 40 mg HS PO Last administered on 05/16/16 20:16 ; Start 05/16/16 at 21:00 Prenat Multivit/ [place]/Iron/Folic Ac 1 tablet 1 tablet DAILY PO Last administered on 05/16/16 20:05; Start 05/16/16 at 18:10 Thiamine HCl 100 mg/Folic Acid 1 mg/Magnesium Sulfate 2 gm/ Multivitamins 10 ml/ Sodium Chloride 1,015.2 ml @ 100 mls/ hr ONCE ONCE IV Last administered on 20:05; Start 05/16/16 at 18:10; Stop 05/17/16 at 04:19; Status DC Sodium Chloride 250 ml @ ud STK-MED ONCE .ROUTE Last administered on 05/17/16 08:19; Start 05/17/16 at 05:56; Stop 05/17/16 at 05:58; Status DC Pantoprazole 80 mg/Sodium Chloride 100 ml @ 10 mls/hr Q10H IV Last administered on 05/17/16 09:19; Start 05/17/16 at 07:25 Octreotide Acetate/Sodium Chloride (SandoSTATIN Inj/ Normal Saline) 100 ml @ 10 mls/hr Q10H IV Last administered on 05/17/16 13:24; Start 05/17/16 at 07:25 Bedside Blood Glucose: 110 Labs Test 05/16/16 14:00 05/16/16 18:05 05/17/16 03:40 05/17/16 13:30 Troponin T < 0.010ug/L (0.0-0.011) Hold Red Top Tube Received (Received) Hold [place] Top Tube Received (Received) Alcohols 13mg/dL (0-10) Urine Color Hye (YELLOW) Urine Appearance Clear (CLEAR,HAZY) Urine pH (5.0-8.0) Urine Specific [place] 1.024 (1.003-1.035) Urine Protein mg/dL (NEG,TRACE) Urine Glucose (UA) mg/dL (NEGATIVE) Urine Ketones mg/dL (NEGATIVE) Urine Occult Blood (NEGATIVE) Urine Nitrite (NEGATIVE) Urine Bilirubin (NEGATIVE) Urine Urobilinogen mg/dL (NORMAL) Urine Leukocyte Esterase (NEGATIVE) Urine RBC 0-2/hpf (0-2) Urine WBC 0-5/hpf (0-5) Urine Epithelial Cells Moderate/hpf (NONE-MOD) Urine Crystals None seen (NONE SEEN) Urine Bacteria None/hpf (NONE-FEW) Urine Hyaline Casts None/lpf (NONE) Urine Granular Casts None seen (NONE SEEN) Urine Waxy Casts None seen (NONE SEEN) Urine Red Blood Cell Casts None seen (NONE SEEN) Urine White Blood Cell Casts None seen (NONE SEEN) Urine Mucus None seen (None Seen) Urine Trichomonas None seen (NONE SEEN) Urine Yeast None (NONE SEEN) Urinalysis Comment Color interference Urine Culture Reflexed Not indicated White Blood Count 4.8th/mm3 (3.8-10.1) Red Blood Count 1.53mil/mm3 (4.40-5.80) Mean Corpuscular Volume 86.9fL (81-100) Mean Corpuscular Hemoglobin 28.8pg (27.0-35.0) Mean Corpuscular Hemoglobin Concent 33.1% (32.0-37.0) Red Cell Distribution Width 17.5% (12.3-15.4) Platelet Count 220bil/L (150-400) Neutrophils (%) (Auto) 62.2% (40-74) Lymphocytes (%) (Auto) 24.0% (14-46) Monocytes (%) (Auto) 10.7% (4-12) Eosinophils (%) (Auto) 2.1% (0-5) Basophils (%) (Auto) 0.4% (0-3) Band Neutrophils % 1% (1-5) Reticulocyte Count,Calculated 0.1% (0.6-2.6) Prothrombin Time 13.8sec (8.1-12.5) Prothromb Time International Ratio 1.28ratio Activated Partial Thromboplast Time 27.8sec (22.8-33.0) Sodium Level 130mEq/L (134-144) Potassium Level 3.0mEq/L (3.5-5.2) Chloride Level 89mEq/L (97-108) Carbon Dioxide Level 22mmol/L (18-29) Blood Urea Nitrogen 11mg/dL (8-27) Creatinine 0.56mg/dL (0.76-1.27) Estimat Glomerular Filtration Rate 158mL/min (>59) Glucose Level 93mg/dL (60-99) Calcium Level 7.0mg/dL (8.5-10.1) Phosphorus Level 2.9mg/dL (2.5-4.9) Magnesium Level 1.4mg/dL (1.6-2.6) Iron Level 106ug/dL (35-150) Total Iron Binding Capacity 141ug/dL (250-450) Percent Iron Saturation 75%sat (15-50) Unsaturated Iron Binding 35.4ug/dL Ferritin 876ng/mL (30-400) Total Bilirubin 1.0mg/dL (0.0-1.2) Aspartate Amino Transf (AST/SGOT) 41U/L (0-50) Alanine Aminotransferase (ALT/SGPT) 12U/L (0-44) Alkaline Phosphatase 90U/L (25-160) Total Protein 5.3g/dL (6.4-8.4) Albumin 2.2g/dL (3.4-5.0) Triglycerides Level 63mg/dL (0-149) Cholesterol Level 77mg/dL (100-199) LDL Cholesterol, Calculated 37.400mg/dL (0-99) VLDL Cholesterol 12.600mg/dL HDL Cholesterol 27mg/dL (>39) Cholesterol/HDL Ratio 2.85 (0.0-4.4) Thyroid Stimulating Hormone (TSH) 4.180uIU/mL (0.450-4.500) Hemoglobin 9.0g/dL (13.8-17.2) Hematocrit 26.6% (41.0-50.0) Plan Impression Patient chart reviewed, patient interviewed and anesthestic plan with risks, benefits, and alternatives discussed, and informed consent obtained. ASA Physical Status: ASA3 Severe Disease Anesthetic Plan: TIVA Bene/Risks/Altern/Consents: Yes HP Complete Prior to Induction: Yes Brayan Altamirano MD May 17, 2016 14:42
[2016-05-17] MEDS ORDERED: Albuterol 0.5% (5mg/mL) 20 mL Inhalation Solution NEB ONE (14:45)
[2016-05-17] MEDS ORDERED: Albuterol 2.5 mg/3 mL Inhalation Solution NEB ONE (14:49)
[2016-05-17] MEDS: Lactated Ringer's 1,000 ML IV ONE ×2 (15:18→15:26)
--- NOTE | 2016-05-17 16:13 | NUR ---
Spoke with Lina at patient access [facility], patient is non service connected and holds no other insurance. 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
--- NOTE | 2016-05-17 17:49 | DRSVH ---
PROCEDURE: MRI BRAIN WITHOUT CONTRAST ([id number]) INDICATIONS: Slurred speech TECHNIQUE: Non-contrast axial T1 spin echo, axial T2 fast spin echo, sagittal and axial FLAIR, coronal T2 fast s pin echo, axial gradient echo, axial diffusion and ADC through the brain. COMPARISON: [facility], CT, CT BRAIN WO CON, 05/16/2016, 14:45. FINDINGS: Image quality: Excellent. CSF spaces: Ventricles appear symmetric in size and shape. Basal cisterns are patent. No extra-axi al fluid collections. Brain: No intracranial bleeds or mass effects. There is cerebral volume loss for age. There are pe riventricular and deep white matter chronic small vessel ischemic changes. Brainstem appears normal. Diffusion-weighted images show no acute ischemic insults. No chronic ischemic insults. Normal int ravascular flow voids are present. Skull and face: Calvarial bone marrow is normal in signal. Orbits are normal. Sinuses: Sinuses and mastoids are clear. IMPRESSION: No acute or recent intracranial abnormality is seen. Dictated by: Sarath Busby M.D. on 05/17/2016 at 17:43 Approved by: Sarath Busby M.D. on 05/17/2016 at 17:47
--- NOTE | 2016-05-17 18:56 | PCM.ANEP1 ---
Post Anesthesia Phase 1 PACU Phase 1 Assessment Date of Service: May 17, 2016 Vital Signs Vital Signs Date Time Temp Pulse Resp B/P Pulse Ox O2 Delivery O2 Flow Rate FiO2 05/17/16 18:18 37.1 86 96/59 96 05/17/16 15:49 97 16 113/70 98 Room Air 05/17/16 15:39 105 16 109/78 97 Room Air 05/17/16 15:35 106 16 103/70 95 Room Air 05/17/16 15:32 94 16 76/52 95 Room Air 05/17/16 15:30 95 16 70/50 95 Room Air 05/17/16 14:55 71 18 97 Room Air 05/17/16 14:29 36.5 74 16 98/73 99 Room Air 05/17/16 13:50 37.0 82 92/64 95 05/17/16 12:48 37.1 83 16 120/78 Anesthetic Administered: TIVA Level of Alertness: Awake, talking HDZ's with Equal Strength: Yes Pain: No Pain Scale Score: 0 Nausea or Vomiting: No Oxygen Delivery: Nasal Cannula Lungs: Coarse, Wheezes Brayan Altamirano MD May 17, 2016 18:56
--- NOTE | 2016-05-17 18:58 | PCM.ANEP2 ---
Post Anesthesia Evaluation ASA/CMS Post Anesthesia VS in Patient's Normal Range?: Yes Resp Stable; Airway Patent?: Yes CV Function & Hydration Stable: Yes Mental Status Recovered?: Yes Pain control Satisfactory?: Yes N/V Control Satisfactory?: Yes Brayan Altamirano MD May 17, 2016 18:58
--- NOTE | 2016-05-17 19:21 | NUR ---
Blood, Urination, Endoscopy, MRI Blood - He finished 2 more units of PRBCs (blood) today for a total of 3 units. Vitals remained stable and he was asymptomatic. His skin became more pink and less pale and he stated that he felt much better. H/H lab draw post transfusion was 9.0/26.6. Per Dr. Avery's orders H/H lab draws have been order every 4 hours. Urination - He only urinated a total of 275 mls of [address] urine. Dr. Wu was made aware of his low urinary output in morning rounds about 1000. Endoscopy - He left [facility] 2021 about 1425 to get an upper scope in endoscopy. He returned about 1600. MRI Brain - He left [facility] 2021 at 1635 via wheelchair for a brain MRI scan. He returned about 1710. Care continues.
--- NOTE | 2016-05-17 19:38 | NUR ---
CT of ABD pt drank most of oral contrast and left for CT of ABD with rest of contrast, SL both IVs Addendum: 05/17/16 at 2000 by MICHELLE CANTRELL RN pt back from CT, re-connected IVs
--- NOTE | 2016-05-17 20:25 | DRSVH ---
PROCEDURE: CT ABDOMEN AND PELVIS WITH CONTRAST ([id number]) INDICATIONS: POST GI PROCEDURE TECHNIQUE: After the administration of oral and intravenous contrast, 5 mm thick sections acquired from the diap hragms to the symphysis. 5 mm thick coronal and sagittal reformats were performed. For radiation do se reduction, the following was used: automated exposure control, adjustment of mA and/or kV accordi ng to patient size. COMPARISON: [facility], CT, CT NECK CHEST ABD PELVIS W CON, 04/08/2016, 16:57. FINDINGS: Image quality: Excellent. ABDOMEN: Lung bases: Miniscule bilateral pleural effusions are present.. Heart size is normal. Solid organs: Liver and spleen are normal in size. The liver shows prominent areas of decreased atte nuation and infiltrate a pattern most consistent with fatty infiltration somewhat geographic in appea france but similar in appearance to the previous recent CT scan.. Gallbladder contains several small gallstones.. Biliary system is non-dilated. Pancreas enhances normally. No adrenal nodules. Kidne ys are normal in size and enhancement, without hydronephrosis. Peritoneum and bowel: Stomach, small bowel, and colon loops are normal in caliber and wall thickness . There is a 2.2 cm duodenal diverticulum from the medial aspect of the second portion of the duodenu m. Numerous sigmoid diverticula are present. Scattered diverticula are present elsewhere. Diverticuli tis is not identified. Nondistended portions of the descending and descending colon are present. I do ubt but cannot exclude colitis. This small amount of peritoneal fluid has developed with some retrope ritoneal edema or stranding as well. Nodes and vessels: No retroperitoneal or mesenteric adenopathy. Aorta and inferior vena cava are no rmal in caliber. Miscellaneous: No ventral hernias. PELVIS: Genitourinary: Bladder wall thickness is normal. Miscellaneous: No inguinal hernias or adenopathy. Bones: No suspicious bony lesions. No vertebral body compression fractures. IMPRESSION: Development of peritoneal fluid since the previous CT of 04/08/16. This appears to be free -flowing and in all quadrants. There is no free air. No loculated fluid. Abnormal appearance of the liver consistent with fatty infiltration somewhat geographic in pattern. Probable nondistended colon versus less likely colitis in the ascending and descending portions. Small gallstones in the gallbladder nonobstructing. Multiple diverticula but no diverticulitis is identified. Duodenal diverticulum from the mesial aspect of the second portion of the duodenum. Dictated by: Sarath Busby M.D. on 05/17/2016 at 20:14 Approved by: Sarath Busby M.D. on 05/17/2016 at 20:24
--- NOTE | 2016-05-17 20:41 | CONS ---
[address] [address] CONSULTATION REPORT PATIENT: GABO HUNT : 1955 MR#: [id number] ADMIT: 05/16/2016 JOB ID: [id number] DATE OF SERVICE: 05/17/2016 REQUESTING PROVIDER: Vj Wu MD. REASON FOR CONSULTATION: Anemia and endoscopy request. HISTORY OF PRESENT ILLNESS: This is a 60-year-old alcoholic male who was recently seen in the ED back in March and found to be anemic. He was admitted to the hospital yesterday with apparently slurred speech and weakness. He disputes those symptoms this morning. When he checked into the emergency department, his hemoglobin was 7.1 and overnight it had fallen to 4.4/13.3. He received blood transfusion, apparently 3 units, and his hemoglobin was up to 9.0/26.6. The patient denies any melena or red blood per rectum. He denies any change in bowel habits, stating that he has a bowel movement about every three days. He, however, only eats about every three days because of early satiety that has developed in recent memory. Over the last year, he estimates that he has lost about 100 pounds. The stool, however, is a garrison color typically, nothing is changed on that score. He denies any abdominal pain, nausea, vomiting or difficulty with swallowing. ALLERGIES: No known drug allergies. MEDICATIONS: No report of any nonsteroidals. PAST MEDICAL HISTORY: Alcohol abuse; anemia, normocytic; COPD; asthma; hypertension. FAMILY HISTORY: The patient did not recall to me any GI-related issues but, according to the notes, his mom had some sort of GI cancer. SOCIAL HISTORY: The patient has not smoked cigarettes for some seven years. He smokes marijuana regularly. He takes alcohol daily. No abdominal surgeries. REVIEW OF SYSTEMS: He has not noticed any acute shortness of breath. He feels better with the blood transfusion that he received so far here in the hospital. Review is otherwise as per HPI. PHYSICAL EXAMINATION: Blood pressure is a little low 98/73, pulse 74, breathing 16, afebrile 36.5, 99% on room air. The patient was in no distress. Conversational. He just received a breathing treatment. Skin warm and dry, slightly pale. Tattoos present. Diminished breath sounds bilaterally consistent with COPD with some extra wheezes on the right. Otherwise acceptable air entry bilaterally. Heart: Regular with distant heart sounds. No significant peripheral pitting edema. Abdomen was soft, nondistended and nontender. IMAGING: Brain scan revealed no significant pathology. He had a chest x-ray which showed no acute process. LABS: Blood count as above. INR was 1.28. Metabolic panel reveals a sodium of 130, potassium 3.0, chloride 89, bicarb 22, BUN 11, creatinine 0.56, glucose 93, calcium 7.0, phosphorus 2.9, magnesium 1.4, iron 106, TIBC 141, percent saturation 75, ferritin 876, bilirubin 1.0, AST 41, ALT 20, alk phos 90, troponin negative. TSH 4.18. No evidence of urinary tract infection. Blood alcohol level was 13 yesterday. ASSESSMENT AND RECOMMENDATIONS: This is a 60-year-old male with diminished appetite and a fairly profound weight loss over the last year or so who largely denies any significant abdominal symptoms apart from early satiety. He has been successfully transfused, and I actually suspect the blood count from early this morning to be artifactually low. It would seem he had a fairly significantly impressive response to 3 units of blood to elevate up to a 9.0 hemoglobin. At any rate, he does not appear to have an iron-deficiency anemia. I suspect this is related to his chronic alcoholism. I note that B12 and folate are still pending. His reticulocyte count was quite low on the panel from yesterday to suggest significant bone marrow suppression. EGD is discussed with the patient along with the usual potential risks. The patient wishes to proceed. Depending on our findings, further evaluation will be likely required with CT and even possibly colonoscopy at some point here. Please see the EGD report for further details.
[2016-05-18] VITALS (10 sets, daily range): BP systolic 102–146; BP diastolic 68–102; PULSE 78–115; RESP 16–28; O2SAT 95–100
[2016-05-18] MEDS: Octreotide Inj 500 MCG in 0.9% Sodium Chloride 99 ML IV SCH ×2 (00:14→11:20)
--- NOTE | 2016-05-18 00:27 | ENDO ---
[address] [address] ENDOSCOPY PROCEDURE PATIENT: GABO HUNT : 1955 MR#: [id number] ADMIT: 05/16/2016 JOB ID: [id number] DATE OF PROCEDURE: 05/17/2016 PROCEDURE: Esophagogastroduodenoscopy with biopsies. INDICATIONS: A 60-year-old male with weight loss, early satiety and anemia. EQUIPMENT: [id number]. SEDATION: Monitored anesthesia as provided by Dr. Brayan Altamirano. COMPLICATIONS: None identified. PROCEDURE INFORMATION: After the risks and benefits were explained, written and verbal informed consent was obtained. The patient was brought into the endoscopy suite and placed into the left lateral decubitus position. Sedation was achieved using the above stated medications with the addition of oxygen via nasal cannula. The scope was introduced into the mouth through the bite block and advanced under direct visualization through the oropharynx, esophagus, stomach, and onto the second portion of the duodenum. The scope was slowly withdrawn to carefully examine the mucosa for any defects or lesions. Retroflexed views were accomplished in the stomach. The stomach was decompressed. The scope was removed from the patient who tolerated the procedure well. FINDINGS: 1. Duodenum: There was some irritated inflammatory mucosa characterized by some mild erythema and erosions throughout D1 and 2. I did not see any one specific mass lesion. Biopsies were taken from D1 and 2 and submitted for histopathologic analysis. 2. Stomach: I did not appreciate any obvious outlet obstruction. I was able to navigate the scope through the pylorus. However, in the region of the antrum there was a moderate-sized, perhaps up to about 2-3 cm, exaggerated set of folds that had some element of mucosal abnormality associated with this lesion. It was also protruding to some degree into the gastric lumen. This did not appear classic for mucosal adenocarcinoma, but certainly did seem abnormal. I took a couple of large biopsies from this location for histopathologic analysis. Retroflexed views of the LES otherwise were unremarkable. The patient did have a small sliding hiatal hernia. The remainder of the stomach was characterized by moderate diffuse gastropathy. 3. Esophagus: The squamocolumnar junction correlated with the top of the gastric folds. The GE junction was at 40 cm from the incisors. The patient did have a nonobstructing Schatzki's ring and some slight irregular appearing mucosa right at the GE junction. Therefore, a small biopsy was taken from the Schatzki's ring itself. The remainder of the esophagus appeared unremarkable. ENDOSCOPIC DIAGNOSES: 1. Nonobstructing Schatzki's. 2. Hiatal hernia. 3. Diffuse gastropathy. 4. Submucosal versus mucosal mass effect in the antrum, biopsied. 5. Erosive duodenopathy. RECOMMENDATIONS: 1. Await histopathology. 2. CT of abdomen and pelvis with IV contrast is recommended and ordered today. 3. Depending on the results I think it would be quite reasonable to proceed with colonoscopy as well. Arguably, this could be done as an outpatient, but I suppose we can see what the CT scan reveals here. 4. Considering the obvious bone marrow suppression I wonder if Hematology consultation may additionally be appropriate for the patient.
[2016-05-18] MEDS ORDERED: Potassium Chloride Inj 20 MEQ in Dextrose 5% 250 ML IV ONE (04:20)
[2016-05-18] MEDS ORDERED: Magnesium Sulf 2 Gm/50mL Water 2 GM in IV Premix 1 EACH IV ONE (04:20)
--- NOTE | 2016-05-18 05:44 | NUR ---
electrolytes pts potassium this morning was 3.0 and magnesium 1.4, called MD received order to give 2gm IV mag rider x1 and 20mEq IV KCL rider x1 now, hung both, no f/u labs ordered
--- NOTE | 2016-05-18 05:44 | NUR ---
loose stools pt having three loose mixed stools this shift, brown in color very foul order, sent first one down for guiacc, no results yet
[2016-05-18] MEDS: Pantoprazole Inj 80 MG in 0.9% Sodium Chloride 80 ML IV SCH (06:15)
[2016-05-18 07:13] LABS: Vitamin B12 1114 pg/mL (211-946)
[2016-05-18] MEDS: 0.9% Sodium Chloride 250 ML IV SCH (07:25)
[2016-05-18] MEDS: Multivit-Miner-Folic Acid-Iron Tablet PO SCH (07:58)
--- NOTE | 2016-05-18 08:52 | NUR ---
Social Work Note: Screen Note Data& Assessment: EMR reviewed. Haim Ayala is a 60 year old male admitted on 05/16/2016 for anemia and GI bleed. Pt has [facility] insurance coverage but is not service connected. Pt lives in [place] with his family and is normally independent at baseline. Pt did report to MD that he consumes multiple alcoholic drinks daily. SW to follow up with pt regarding alcohol use and offer resources. SW to continue to follow. Plan: Anticipated discharge home via POV when medically ready. SW to follow up with pt regarding alcohol use and offer resources. SW to continue to follow. ZURI Nguyen
--- NOTE | 2016-05-18 09:43 | NUR ---
Evaluation completed. Please go to "Notes" then click on "Assessments and Notes" (bottom left corner of screen). Then select appropriate discipline tab on top of screen.
[2016-05-18 09:52] LABS: Mean Corpuscular Hemoglobin 28.7 pg (27.0-35.0); Mean Corpuscular Volume 83.8 fL (81-100)
[2016-05-18 10:17] LABS: Magnesium 1.7 mg/dL (1.6-2.6)
--- NOTE | 2016-05-18 11:32 | PCM.PNMED ---
Subjective Date of Service May 18, 2016 Subjective A little confusion. No chest pain, some chronic dyspnea and wheezing. No headache or hallucinations or shakes. Exam Vital Signs Vital Sign - Last Date Time Temp Pulse Resp B/P Pulse Ox O2 Delivery O2 Flow Rate FiO2 05/18/16 10:51 115 05/18/16 07:48 36.3 16 127/84 95 Room Air Intake and Output 05/17/16 05/17/16 05/18/16 Cumulative From/Thru 15:00 23:00 07:00 05/16/16 13:36 - 05/18/16 06:45 Intake Total 1480 ml 949 ml 765 ml 5177 ml Output Total 275 ml 1100 ml 1950 ml Balance 1480 ml 674 ml -335 ml 3227 ml Intake Oral 520 ml 356 ml 1076 ml IV Total 880 ml 429 ml 409 ml 3201 ml Packed Cells 600 ml 900 ml Output Urine Total 275 ml 600 ml 1450 ml Stool Total 500 ml 500 ml # Voids 2 Exam Chronically ill. Alert and oriented Anicteric sclera Lungs 2/4 BS, exp wheezing Heart regular, no MGR Abdomen soft, NT No edema PALE IVs and Medications Medications Reviewed: Medications were reviewed in detail Lab and Diagnostics Result Diagram: 05/18/16 0942 05/18/1642 X-Rays, CTs and MRIs Date of Service: 05/16/161431 PROCEDURE: X-RAY CHEST ONE VIEW, PORTABLE ([id number]) IMPRESSION: No acute process. Dictated by: Abi Orellana M.D. on 05/16/2016 at 15:27 Approved by: Abi Orellana M.D. on 05/16/2016 at 15:27 Date of Service: 05/16/16 1432 PROCEDURE: CT BRAIN WITHOUT CONTRAST ([id number]) IMPRESSION: No acute process. Dictated by: Abi Orellana M.D. on 05/16/2016 at 14:55 Approved by: Abi Orellana M.D. on 05/16/2016 at 14:56 12-lead ECG NSR at about 75 bpm Assessment & Plan 60 year old male with past history notable for hypertension, alcohol abuse, previous smoker (quit 7 years ago) on no home medications presents with transient episode of slurred speech, altered mental status and fall. # Acute transient slurred speech, weakness, fall, and possible right facial droop suspicious for acute TIA. present prior to admission. Currently resolved - admit to tele with TIA/stroke protocol All sx resolved and of unclear cause. No medicine changes. No abnormal imaging. Doubt TIA. Follow clinically. # Acute blood loss Anemia (unclear chronicity), present on admission.Worse over night. Probable liver Dz. -Hct stable. EGD revealed gastropathy. No ulcers, Shatski ring. No varices. Stop octreotide.PO protonix. -Brown heme pos stool over night. Colonoscopy Tue (d/w GI) Given 3 units PRBC # History of alcohol abuse, now with mild alcohol withdrawal (CIWA 5). - no sign of withdrawal at this time although alcohol level is elevated at 13 - continue CIWA protocol in anticipation of possible withdrawal # History of hypertension. currently stable - permissive HTN at this time as noted above # History of asthma/COPD. stable - Nebs prn, add spiriva. # Acute hypokalemia. poa. Replete and follow. - replete and f/u - check Mag with am labs # History of weight loss - unclear etiology - workup for now as noted above # Transaminitis. unclear acuity. poa - likely due to history of alcohol use - f/u repeat labs in am Convert to inpatient, over 2 nights needed. Pain Evaluation: Adequate Pain Control GI Prophylaxis: Proton Pump Inhibitor VTE Prophylaxis: SCDs VTE Mechanical Devices: Intermittant Pneumatic CD Resuscitation Status: CPR: Attempt Resuscitation (discussed and verified with the patient) Time spent 30 min, met with as well. Vj Wu MD May 18, 2016 11:32
--- NOTE | 2016-05-18 12:56 | NUR ---
Case Management: Provided RADHA form with explanation to patient and spouse - spouse signed for patient at 05/18 at 1215. Copy to patient and spouse, singed original placed in chart. Janny Fernandez RN
[2016-05-18] MEDS ORDERED: Glycopyrrolate 0.2 MG/ML 1mL Inj ONE (12:58)
[2016-05-18] MEDS ORDERED: Ketamine 10 mg/mL 20 mL Inj ONE (12:58)
[2016-05-18] MEDS ORDERED: Propofol 10 mg/mL 20 mL Inj ONE (12:58)
--- NOTE | 2016-05-18 14:12 | NUR ---
IV Medications Converted to By Mouth Medications His IV Protonix and Sandostatin were stopped per MD orders. He will begin by mouth Protonix this evening. No complaints of abdominal discomfort. No bloody diarrhea noted this shift. Care continues.
[2016-05-18] MEDS ORDERED: PEG/Electrolytes 4,000 mL Solution PO ONE ×2 (14:20→20:00)
--- NOTE | 2016-05-18 14:44 | NUR ---
Social Work Note: CD Assessment Current Circumstances: Haim Ayala is a 60 year old male admitted on 05/16/2016 for anemia and GI bleed. Pt reported to MD that he consumes 1-5 vodka drinks daily. Pt current CIWA is 5. SW met with pt and pt at bedside, SW role explained. Hx of substance Use: Pt did report multiple drinks daily with his preference being vodka. Pt explained that if he is having a "good day" he will only drink one or two drinks. If people "piss me off I might drink more. Pt also states it depends on how much pain his shoulder is in that day. Pt was unable to identify how long he had been drinking multiple drinks daily for. Hx of tx programs/detox: Pt denies. Hx of w/d symptoms: Pt CIWA is 5 at this time, however, pt denies any withdrawal symptoms and denies any hx of withdrawal symptoms. Family hx: N/A. Hx of Sobriety and Supports: Pt primary support. Pt denies an extended amount of time where he went without drinking but states he can stop drinking "whenever." Patience perception of the consequences of use: Pt does not identify any consequences for his alcohol use over his lifetime. Suicide Risk: Pt denies any current suicidal ideation. Pt denies any hx of suicidal ideation or attempts. Pt added "I am not a depressed person, that's not who I am." Motivation for tx: Pt does not believe he has a problem with the amount of alcohol he consumes on a daily basis. Pt denies any need for tx. Pt stated " I would waste my time going to that crap." Pt denied any other resources. Discharge Plan: Anticipated discharge home when medically ready. Pt and pt deny any other needs at this time. SW to continue to follow if any needs arise. ZURI Nguyen
[2016-05-18] MEDS: Pantoprazole 40 mg ER24 Tablet PO SCH (15:43)
--- NOTE | 2016-05-18 16:12 | PCM.PNMED ---
Subjective Date of Service May 18, 2016 Subjective GASTROENTEROLOGY PROGRESS NOTE: Patient's heparin lock was pulled out and thus he complains of pain at the needle site. Otherwise, he appears to be in no acute distress and denies any symptoms or complaint. He denies CP, dyspnea, headache, dizziness, weakness, abdominal pain, nausea, or vomiting. He has some chronic cough and wheezing, which he stated to have "since I was a boy." He reports to have 4 normal BM since the endoscopy yesterday. Family by bedside and asked about endoscopy results. Findings were explained. Exam Vital Signs Vital Sign - Last Date Time Temp Pulse Resp B/P Pulse Ox O2 Delivery O2 Flow Rate FiO2 05/18/16 10:51 115 05/18/16 07:48 36.3 16 127/84 95 Room Air Intake and Output 05/17/16 05/17/16 05/18/16 Cumulative From/Thru 15:00 23:00 07:00 05/16/16 13:36 - 05/18/16 06:45 Intake Total 1480 ml 949 ml 765 ml 5177 ml Output Total 275 ml 1100 ml 1950 ml Balance 1480 ml 674 ml -335 ml 3227 ml Intake Oral 520 ml 356 ml 1076 ml IV Total 880 ml 429 ml 409 ml 3201 ml Packed Cells 600 ml 900 ml Output Urine Total 275 ml 600 ml 1450 ml Stool Total 500 ml 500 ml # Voids 2 Exam General: Alert and oriented. Frail, chronically ill appearance. No acute distress. HENT: Atraumatic; mucus membranes dry. Anicteric sclera. Neck: Soft, trachea midline Cardiac: Regular rate and rhythm, no murmurs Respiratory: Loud coarse breath sound with significant expiratory wheezing. Abdomen: Soft, nontender, nondistended. Active bowel sound throughout. Extremities: No edema Skin: pale, no jaundice. IVs and Medications Medications Reviewed: Medications were reviewed in detail Lab and Diagnostics Result Diagram: 05/18/16 0942 05/18/16 1315 X-Rays, CTs and MRIs Date of Service: 05/16/16 1432 PROCEDURE: X-RAY CHEST ONE VIEW, PORTABLE ([id number]) IMPRESSION: No acute process. Dictated by: Abi Orellana M.D. on 05/16/2016 at 15:27 Approved by: Abi Orellana M.D. on 05/16/2016 at 15:27 Date of Service: 05/16/16 1432 PROCEDURE: CT BRAIN WITHOUT CONTRAST ([id number]) IMPRESSION: No acute process. Dictated by: Abi Orellana M.D. on 05/16/2016 at 14:55 Approved by: Abi Orellana M.D. on 05/16/2016 at 14:56 ---- PROCEDURE: CT ABDOMEN AND PELVIS WITH CONTRAST IMPRESSION: Development of peritoneal fluid since the previous CT of 04/08/16. This appears to be free-flowing and in all quadrants. There is no free air. No loculated fluid. Abnormal appearance of the liver consistent with fatty infiltration somewhat geographic in pattern. Probable nondistended colon versus less likely colitis in the ascending and descending portions. Small gallstones in the gallbladder nonobstructing. Multiple diverticula but no diverticulitis is identified. Duodenal diverticulum from the mesial aspect of the second portion of the duodenum. Dictated by: Sarath Busby M.D. on 05/17/2016 at 20:14 Approved by: Sarath Busby M.D. on 05/17/2016 at 20:24 12-lead ECG NSR at about 75 bpm Assessment & Plan Mr. Haim Ayala is 60 year old male with past history notable for hypertension , alcohol abuse, previous smoker (quit 7 years ago), COPD on no home medications presents with transient episode of slurred speech, altered mental status and fall. On admission, he was found to have a hemoglobin of 7.1 and overnight it had fallen to 4.4. He received 3 units of PRBC and his hemoglobin has been stable around 9.0. GI service was consulted to help evaluate his acute blood loss anemia that is possibly due to GI bleed. EGD 05/17/16: Nonobstructing Schatzki's ring, diffuse gastropathy, erosive duodenopathy, hiatal hernial, and submucosal versus mucosal mass effect in the antrum (biopsied). Assessments - Acute anemia s/p 3U pRBC likely secondary to liver disease from chronic alcoholism. - Nonobstructing Schatzki's. - Hiatal hernia. - Diffuse gastropathy. - Submucosal versus mucosal mass effect in the antrum, biopsied. - Erosive duodenopathy. Plans - H/H remain stable. Will continue to trend. - Continue PO Protonix. - CT adb showed Multiple diverticula but no diverticulitis - Plan for colonoscopy tomorrow 05/19. Bowel prep as follow: 2L of Colyte tonight and another 2L of Colyte at 6am tomorrow. This instruction was passed on to the nurse. - continue clear liquid diet. - Await histopathology on the antrum biopsy. - Normal iron study. B12 is also normal (1114). Folate pending. - Advised patient to stop drinking alcohol. Thank you for this consult. If you have any additional questions or concerns, please do not hesitate to contact us. Pain Evaluation: Adequate Pain Control GI Prophylaxis: Proton Pump Inhibitor VTE Prophylaxis: SCDs VTE Mechanical Devices: Intermittant Pneumatic CD Resuscitation Status: CPR: Attempt Resuscitation (discussed and verified with the patient) Attending Statement Patient seen and examined. Agree with assessment and plan as described by Dr Mckeon. Pathology still pending. CT not revealing. Colon tomorrow. Gabriel Mckeon DO May 18, 2016 16:12 Gregorio Haque MD May 18, 2016 23:35 All sx resolved and of unclear cause. No medicine changes. No abnormal imaging. Doubt TIA. Follow clinically. # Acute blood loss Anemia (unclear chronicity), present on admission.Worse over night. Probable liver Dz. -Hct stable. EGD revealed gastropathy. No ulcers, Shatski ring. No varices. Stop octreotide.PO protonix. -Brown heme pos stool over night. Colonoscopy Wed (d/w GI) Given 3 units PRBC # History of alcohol abuse, now with mild alcohol withdrawal (CIWA 5). - no sign of withdrawal at this time although alcohol level is elevated at 13 - continue CIWA protocol in anticipation of possible withdrawal # History of hypertension. currently stable - permissive HTN at this time as noted above # History of asthma/COPD. stable - Nebs prn, add spiriva. # Acute hypokalemia. poa. Replete and follow. - replete and f/u - check Mag with am labs # History of weight loss - unclear etiology - workup for now as noted above # Transaminitis. unclear acuity. poa - likely due to history of alcohol use - f/u repeat labs in am Convert to inpatient, over 2 nights needed. Pain Evaluation: Adequate Pain Control GI Prophylaxis: Proton Pump Inhibitor VTE Prophylaxis: SCDs VTE Mechanical Devices: Intermittant Pneumatic CD Resuscitation Status: CPR: Attempt Resuscitation (discussed and verified with the patient) Gabriel Mckeon DO May 18, 2016 16:12
[2016-05-18] MEDS: Albuterol-Ipratropium 3 mL Inhalation Solution NEB PRN (17:34)
--- NOTE | 2016-05-18 18:46 | NUR ---
Shortness of Breath This afternoon/evening he put his call light on and the nurse monitoring called to say his heart rate was in the 150s. Went into his room and found him sitting up at 90 degrees in the bed having some visible respiratory distress and shortness of breath. Auscultated his lungs: expiratory wheezes throughout with slight to moderate generalized diminishment. Gave him a nebulizer treatment and took his vitals (100% saturation). Auscultated his lungs again: expiratory wheezes throughout with only slight diminishment. He said he felt much better, looked more relaxed in his breathing, and said he thought that he just had a panic attack due to his anxiety about his colonoscopy tomorrow. Light Coil Winder reported that his heart had decreased to the 110s. Care continues.
[2016-05-19] VITALS (14 sets, daily range): BP systolic 83–130; BP diastolic 56–81; PULSE 64–88; RESP 15–22; O2SAT 94–100
[2016-05-19 03:26] LABS: BASOPHILS % (AUTO) 0.5 % (0-3); EOSINOPHILS % (AUTO) 3.4 % (0-5); MONOCYTES % (AUTO) 16.1 % (4-12); Mean Corpuscular Hemoglobin 28.8 pg (27.0-35.0); Mean Corpuscular Volume 84.5 fL (81-100); NEUTROPHILS % (AUTO) 58.4 % (40-74); Platelet Count 176 bil/L (150-400)
--- NOTE | 2016-05-19 03:31 | NUR ---
colyte prep pt started colyte prep around 1999 pt supposed to drink half now and the other half in the morning. pt tolerating the first half and having many loose stools still brownish in color.
[2016-05-19] MEDS: 0.9% Sodium Chloride 250 ML IV SCH (07:25)
[2016-05-19] MEDS: Pantoprazole 40 mg ER24 Tablet PO SCH ×2 (07:30→16:30)
[2016-05-19] MEDS: Multivit-Miner-Folic Acid-Iron Tablet PO SCH (08:30)
[2016-05-19] MEDS: Albuterol-Ipratropium 3 mL Inhalation Solution NEB PRN (12:20)
[2016-05-19] MEDS ORDERED: Phenylephrine/NS 100 mCg/mL 10 mL Syringe IVPUSH ONE (12:59)
[2016-05-19] MEDS ORDERED: Propofol 10,000 mCg/mL 20 mL Inj ONE (12:59)
[2016-05-19] MEDS ORDERED: fentaNYL-PF 50 mCg/mL 2 mL Inj ONE (12:59)
--- NOTE | 2016-05-19 19:01 | PCM.ANEP1 ---
Post Anesthesia Phase 1 PACU Phase 1 Assessment Date of Service: May 17, 2016 Vital Signs Vital Signs Date Time Temp Pulse Resp B/P Pulse Ox O2 Delivery O2 Flow Rate FiO2 05/19/16 15:54 36.7 77 16 101/62 97 Room Air 05/19/16 12:39 36.9 82 15 115/77 96 Room Air 05/19/16 12:21 74 18 94 Room Air Anesthetic Administered: TIVA Level of Alertness: Sleepy, easy to arouse HDZ's with Equal Strength: Yes Pain: No Nausea or Vomiting: No Oxygen Delivery: Nasal Cannula Lungs: Coarse, Wheezes Summary VSS in PACU, see RN notes Ayo Callahan MD May 19, 2016 19:01
--- NOTE | 2016-05-19 19:01 | PCM.ANEP2 ---
Post Anesthesia Evaluation ASA/CMS Post Anesthesia VS in Patient's Normal Range?: Yes Resp Stable; Airway Patent?: Yes CV Function & Hydration Stable: Yes Mental Status Recovered?: Yes Pain control Satisfactory?: Yes N/V Control Satisfactory?: Yes Ayo Callahan MD May 19, 2016 19:01
--- NOTE | 2016-05-19 19:08 | PCM.PNMED ---
Subjective Date of Service May 19, 2016 Subjective Patient resting comfortably in bed when I visit with him. Family at bedside. Awaiting colonoscopy, wants to go home [place]. He did have 3 or 4 incontinent stools last night during bowel prep. No abdominal pain, no hematochezia. Exam Vital Signs Vital Sign - Last Date Time Temp Pulse Resp B/P Pulse Ox O2 Delivery O2 Flow Rate FiO2 05/19/16 15:54 36.7 77 16 101/62 97 Room Air Intake and Output 05/18/16 05/18/16 05/19/16 Cumulative From/Thru 15:00 23:00 07:00 05/16/16 13:36 - 05/19/16 06:10 Intake Total 283 ml 864 ml 2400 ml 8724 ml Output Total 825 ml 2100 ml 4875 ml Balance 283 ml 39 ml 300 ml 3849 ml Intake Oral 864 ml 2400 ml 4340 ml IV Total 283 ml 3484 ml Packed Cells 900 ml Output Urine Total 825 ml 1000 ml 3275 ml Stool Total 500 ml Urine/Stool Mix 1100 ml 1100 ml # Voids 2 Exam General: Alert, Oriented X3, NAD Head: Normocephalic, atraumatic Eyes: CISCO, EOMI, no scleral Icterus Chest: clear to auscultation B/L, no wheezing rales or rhonchi Heart: Regular rate and rhythm. Normal S1, S2, no murmurs noted Abdomen: soft, non-tender. Bowel sounds are normoactive. No guarding or rebound. Extremities: no cyanosis, clubbing or edema. IVs and Medications Medications Reviewed: Medications were reviewed in detail Lab and Diagnostics Result Diagram: 05/19/16 0305 05/19/16 0305 X-Rays, CTs and MRIs Date of Service: 05/16/16 1432 PROCEDURE: X-RAY CHEST ONE VIEW, PORTABLE ([id number]) IMPRESSION: No acute process. Dictated by: Abi Orellana M.D. on 05/16/2016 at 15:27 Approved by: Abi Orellana M.D. on 05/16/2016 at 15:27 Date of Service: 05/16/16 1432 PROCEDURE: CT BRAIN WITHOUT CONTRAST ([id number]) IMPRESSION: No acute process. Dictated by: Abi Orellana M.D. on 05/16/2016 at 14:55 Approved by: Abi Orellana M.D. on 05/16/2016 at 14:56 ---- PROCEDURE: CT ABDOMEN AND PELVIS WITH CONTRAST IMPRESSION: Development of peritoneal fluid since the previous CT of 04/08/16. This appears to be free-flowing and in all quadrants. There is no free air. No loculated fluid. Abnormal appearance of the liver consistent with fatty infiltration somewhat geographic in pattern. Probable nondistended colon versus less likely colitis in the ascending and descending portions. Small gallstones in the gallbladder nonobstructing. Multiple diverticula but no diverticulitis is identified. Duodenal diverticulum from the mesial aspect of the second portion of the duodenum. Dictated by: Sarath Busby M.D. on 05/17/2016 at 20:14 Approved by: Sarath Busby M.D. on 05/17/2016 at 20:24 12-lead ECG NSR at about 75 bpm Assessment & Plan 60 year old male with past history notable for hypertension, alcohol abuse, previous smoker (quit 7 years ago) on no home medications presents with transient episode of slurred speech, altered mental status and fall. he was found to have a hemoglobin of 7.1 and overnight it had fallen to 4.4. He received 3 units of PRBC and his hemoglobin has been stable around 9.0. GI service was consulted # Acute transient slurred speech, weakness, fall, and possible right facial droop suspicious for acute TIA. present prior to admission. Currently resolved - admitted to [facility] with TIA/stroke protocol - All sx resolved and of unclear cause. No medicine changes. No abnormal imaging. Doubt TIA. Follow clinically. # Acute blood loss Anemia (unclear chronicity), present on admission.Worse over night. Probable liver Dz. -Hct stable. EGD revealed gastropathy. No ulcers, Shatski ring. No varices. Stopped octreotide. PO protonix. -Brown heme pos stool over night. Awaiting colonoscopy today -Given 3 units PRBC total # History of alcohol abuse, - no sign of withdrawal at this time although alcohol level is elevated at 13 - continue CIWA protocol in anticipation of possible withdrawal # History of hypertension. currently stable - permissive HTN at this time as noted above # History of asthma/COPD. stable - Nebs prn, add spiriva. # Acute hypokalemia. poa. Replete and follow. - replete and f/u # History of weight loss - unclear etiology - workup for now as noted above # Transaminitis. unclear acuity. poa - likely due to history of alcohol use GI Prophylaxis: Proton Pump Inhibitor VTE Prophylaxis: SCDs VTE Mechanical Devices: Intermittant Pneumatic CD Resuscitation Status: CPR: Attempt Resuscitation (discussed and verified with the patient) Gui Craig DO May 19, 2016 19:08
--- NOTE | 2016-05-19 19:46 | NUR ---
Colonoscopy He finished up the bowel prep this morning per MD orders. Dr. Aldridge ordered an NPO diet to start at noon which was carried out. Report called to the endoscopy nurse and he was taken from [facility] 2021 to endoscopy at 1754. [employer] Operator notified. Gave warehouse worker 2nd shift report to BUD Vásquez. Care continues.
--- NOTE | 2016-05-19 23:10 | ENDO ---
[address] [address] ENDOSCOPY PROCEDURE PATIENT: GABO HUNT : 1955 MR#: [id number] ADMIT: 05/16/2016 JOB ID: [id number] DATE: 05/19/2016 PRIMARY PROVIDER: Jayden Shine MD PROCEDURE: Colonoscopy with hot and cold snare polypectomy. INDICATIONS: A 60-year-old male hospitalized with severe anemia. He was heme-positive upon admission but has not had any overt signs of bleeding. EQUIPMENT: [employer] H 180 AL. SEDATION: Monitored anesthesia as provided by Dr. Ayo Harding. COMPLICATIONS: None identified. BOWEL PREPARATION: Fair, adequate exam. PROCEDURE INFORMATION: After the risks and benefits were explained, written and verbal informed consent was obtained. The patient was brought into the endoscopy suite and placed into the left lateral decubitus position. Sedation was achieved as above. A digital rectal examination accomplished. Moderate engorged internal and external hemorrhoids. No masses appreciated. The scope was introduced into the rectum and advanced to the cecum as identified by the appendiceal orifice and ileocecal valve. The terminal ileum was briefly accessed. Polypectomies were performed on the way back. One of the large polyps was dragged out with a snare. We then advanced the scope again to the transverse colon, performed further polypectomies and ultimately decompressed the colon prior to removing the scope. Comprehensive views were made at the level of the dentate line directly. FINDINGS: The patient had evidence of a small focus of diverticulitis in the sigmoid colon. There was some scattered diverticula. There was a large, perhaps 2 cm polyp at the level of the ileocecal valve in the ascending colon. This was removed with hot snare polypectomy using a Jumbo snare. There was another large polyp in the transverse colon, also perhaps about 2 cm. This one was pedunculated and easily removed with the hot snare. Both of these were removed by way of the snare device per rectum. In the rectosigmoid region, there was another large, perhaps 15 mm short, pedunculated polyp removed with hot snare. There were a couple of other smaller polyps also in the rectum that were removed with hot and cold snare polypectomy. All three of these were submitted as rectosigmoid polyps. Otherwise, there were a couple of other polyps in the ascending colon that were quite small and transverse, removed by way of hot and cold snare submitted as "colon polyps." I did not see any mass lesions. The patient had a fairly atrophic-appearing colon but no overt signs of colitis. As mentioned above, the TI appeared visually normal. ENDOSCOPIC DIAGNOSES: 1. Multiple colon polyps. 2. Diverticulosis with a focus of mild diverticulitis. 3. Moderately engorged hemorrhoids. RECOMMENDATIONS: 1. Await histopathology. If all of these are confirmed adenomatous and no more advanced features then repeat colonoscopy would be suggested for three years. 2. Based on the patient's profoundly deficient reticulocyte count in the setting of this chronic anemia, I would suggest perhaps a hematology consultation at some point. 3. For the time being there does not appear to be any evidence of acute ongoing GI bleeding. We will sign off from a GI standpoint.
[2016-05-20 00:32] VITALS: PULSE 84
[2016-05-20 03:10] VITALS: BP_SYST 109; BP_SYST 115; BP_DIAS 65; BP_DIAS 75; PULSE 55; PULSE 89; RESP 18; O2SAT 97
[2016-05-20 03:39] LABS: Mean Corpuscular Hemoglobin 28.9 pg (27.0-35.0); Mean Corpuscular Volume 86.3 fL (81-100)
--- NOTE | 2016-05-20 05:57 | NUR ---
Diet/Tele/Legs Returned from Endoscopy , 7 polyps removed , 2 large, sent to pathology, A&O x 3 , Room air , saline locked Diet , advance as tolerated, family brought a Big Mac, he ate without discomfort. Stated his legs were the least painful in several years, still C/O rt shoulder pain, gave Morphine 2 MG . effective pain relief.
[2016-05-20] MEDS: 0.9% Sodium Chloride 250 ML IV SCH (07:25)
[2016-05-20 07:56] VITALS: PULSE 91
[2016-05-20 08:17] VITALS: BP 106/61; PULSE 92; O2SAT 98
[2016-05-20] MEDS: Multivit-Miner-Folic Acid-Iron Tablet PO SCH (09:04)
[2016-05-20] MEDS: Pantoprazole 40 mg ER24 Tablet PO SCH (09:04)
--- NOTE | 2016-05-20 11:03 | NUR ---
Social Work: Discharge D: Pt discussed in am rounds. Pt is medically stable for discharge home. EMR reviewed; PT notes from 05/18 suggest pt was not back to his baseline mobility- no recommendations were made. CASTING SUPERVISOR requested PT see pt prior to d/c however they will not be able to see pt until this afternoon. field staff have ambulated with the pt and he has been I to bathroom with a FWW. Care trends reflects this as well. CASTING SUPERVISOR met with pt and at bedside to discuss dcp and assess for unmet needs. Pt confirms that he has been ambulating with his FWW and is stable with ambulation. CASTING SUPERVISOR reviewed discharge options including HH. Pt and spouse decline HH Services. CASTING SUPERVISOR reviewed risks of discharge home without supportive services. Pt and spouse state pt has a FWW at home and they have a roommate who has experience working as a CRYPTOLOGIC LINGUIST. They believe this person will be able to provide the support the pt requires. CASTING SUPERVISOR also informed them that they could request HH from pt's PCP if they changed their minds. A: pt who lives at home with his spouse. P: Anticipate pt to discharge home today via POV; no sw needs. ZURI Alas
[2016-05-20] MEDS ORDERED: Potassium Chloride 20 mEq SR Tablet PO ONE (11:20)
--- NOTE | 2016-05-20 11:28 | PCM.DIMED ---
Discharge Instructions Date of Service May 20, 2016 Dates of Hospitalization May 16, 2016 at 17:28 Discharge Diagnosis Discharge Diagnosis GI bleed Anemia Moderate total protein calorie malnutrition Diet No restrictions Activity No restrictions Call your provider Shortness of breath, Bleeding, Chest pain, Vomitting, Excessive diarrhea, Weakness (unilateral) Patient Instructions Follow-up plan Follow-up with gastroenterology in 2 weeks for biopsy results Follow-up with PCP in: 1 week Gui Craig DO May 20, 2016 11:28
[2016-05-20 11:38] VITALS: BP 94/65; PULSE 67; O2SAT 94
--- NOTE | 2016-05-20 13:03 | NUR ---
Discharge Pt discharged home today at 13:00. Pt off floor via wheelchair with all of his belongings in the company of the [employer] and his to private vehicle. Pt given education materials on GI bleed and alcohol use. Follow up appointments explained, pt and voice understanding.
--- NOTE | 2016-05-20 14:46 | NUR ---
Evaluation completed. Please go to "Notes" then click on "Assessments and Notes" (bottom left corner of screen). Then select appropriate discipline tab on top of screen.
--- NOTE | 2016-05-20 19:11 | PCM.DC.MED ---
Discharge Summary Date of Service May 20, 2016 Dates of Hospitalization Date of Hospital Admission May 16, 2016 at 17:28 Date of Discharge: May 20, 2016 Providers: Admitting Physician: Gurinder Bobby Primary Care Physician: Jayden Shine MD Attending Physician: Gregorio Haque MD Diagnosis at Time of Discharge Diagnosis at Time of Discharge GI bleed Anemia Consultations Gastroenterology Procedures XRay, CTs & MRIs Date of Service: 05/16/16 1432 PROCEDURE: X-RAY CHEST ONE VIEW, PORTABLE ([id number]) IMPRESSION: No acute process. Dictated by: Abi Orellana M.D. on 05/16/2016 at 15:27 Approved by: Abi Orellana M.D. on 05/16/2016 at 15:27 Date of Service: 05/16/16 1432 PROCEDURE: CT BRAIN WITHOUT CONTRAST ([id number]) IMPRESSION: No acute process. Dictated by: Abi Orellana M.D. on 05/16/2016 at 14:55 Approved by: Abi Orellana M.D. on 05/16/2016 at 14:56 ---- PROCEDURE: CT ABDOMEN AND PELVIS WITH CONTRAST IMPRESSION: Development of peritoneal fluid since the previous CT of 04/08/16. This appears to be free-flowing and in all quadrants. There is no free air. No loculated fluid. Abnormal appearance of the liver consistent with fatty infiltration somewhat geographic in pattern. Probable nondistended colon versus less likely colitis in the ascending and descending portions. Small gallstones in the gallbladder nonobstructing. Multiple diverticula but no diverticulitis is identified. Duodenal diverticulum from the mesial aspect of the second portion of the duodenum. Dictated by: Sarath Busby M.D. on 05/17/2016 at 20:14 Approved by: Sarath Busby M.D. on 05/17/2016 at 20:24 ECG 12 Lead NSR at about 75 bpm Invasive Procedures EGD, colonoscopy Brief History 60 year old male with past history notable for hypertension, alcohol abuse, previous smoker (quit 7 years ago) on no home medications presents with transient episode of slurred speech, altered mental status and fall. His family notes that patient's problems really started about a year ago when he started having decreased appetite and since then has lost about 80 pounds. Over the past month he has been increasingly more pale and weak. About one month ago he saw his PCP and was found to be significantly anemic. Per his family's report he was sent to our ED where he was transfused one unit of PRBC and sent home without admission. Today he was in his usual state of health and sitting his chair when his noticed that he looked pale. She asked him how he was doing but patient appeared to answer "nonsense" and in a very slurred speech. Patient then tried to stand up but fell to his knees without hitting his head or passing out. She called her son for help who noticed that patient was having some right facial droop. Patient does not recall any of these events but recall being helped up from the floor by his son. On their way to the hospital his speech and thought process acutely returned back to baseline. In the ED his lab work is notable for evidence of anemia and his stool guaiac was noted to be trace positive. Patient denies any history of melena, hematochezia, hematemesis or coffee ground emesis but does not occasional nausea and bringing up clear or bile colored vomit. He has never had any type of endoscopy but has been referred to GI by his PCP but he says he has not been able to see the specialist due to insurance and financial issues. He further reports chronic bilateral lower extremity numbness, paresthesia and weakness ( at least for the past year) without any clear explanation or diagnosis so far. He admits to drinking alcohol (mostly vodka) regularly (with his last drink early this morning) which he says is to take away his ongoing right shoulder pain. He also endorses occasional episodes of shakes and tremor when he has not had alcohol for few days. He also reports chronic asthma/COPD with associated SOB which has not been any worse than usual recently. Hospital Course 60 year old male with past history notable for hypertension, alcohol abuse, previous smoker (quit 7 years ago) on no home medications presents with transient episode of slurred speech, altered mental status and fall. he was found to have a hemoglobin of 7.1 and overnight it had fallen to 4.4. He received 3 units of PRBC and his hemoglobin has been stable around 9.0. GI service was consulted. He was thought to not likely have had a TIA and was found to have normal brain imaging. He was taken for an EGD with no sources of GI bleeding, he was then prepped for colonoscopy which was done 05/19/2016 with no reported complications but no found source of bleeding. He was noted to have a reticular cyst and some polyps were biopsied. He will need to follow-up with GI in 2 weeks for biopsy results. His blood level remained stable and he certainly could have had a bit of delusional effect causing his initial drop in hemoglobin. He was noted to have a low TIBC as well as reticulocyte count indicating some chronic disease, likely moderate total protein calorie malnutrition contributing. He had low protein levels, recent weight loss etc. His low reticulocyte count may be secondary to myelosuppression from alcoholism. I did have a long discussion with him recommending alcohol cessation. He will need to follow up with his primary care physician within one week, sooner if his condition worsens in anyway. I recommend repeat CBC values at that time and close monitoring with consideration of hematologic consult if his blood level remains low. Patient was discharged home in stable condition, follow-up as above. Delineated problem list as below # Acute transient slurred speech, weakness, fall, and possible right facial droop suspicious for acute TIA. present prior to admission. Currently resolved - admitted to [facility] with TIA/stroke protocol - All sx resolved and of unclear cause. No medicine changes. No abnormal imaging. Doubt TIA. Follow clinically. # Acute blood loss Anemia (unclear chronicity), present on admission.Worse over night. Probable liver Dz. -Hct stable. EGD revealed gastropathy. No ulcers, Shatski ring. No varices. Stopped octreotide. PO protonix. -Brown heme pos stool over night. Awaiting colonoscopy today -Given 3 units PRBC total # History of alcohol abuse, - no sign of withdrawal at this time although alcohol level is elevated at 13 - continue CIWA protocol in anticipation of possible withdrawal # History of hypertension. currently stable - permissive HTN at this time as noted above # History of asthma/COPD. stable - Nebs prn, add spiriva. # Acute hypokalemia. poa. Replete and follow. - replete and f/u #Hyponatremia: -Resolved #Moderate total protein calorie malnutrition: -Present on admission -Discussed increased by mouth intake, decreased alcohol consumption/cessation. Focus on increased proteins. Patient actually enjoys making his own protein shakes # History of weight loss - unclear etiology - workup for now as noted above # Transaminitis. unclear acuity. poa - likely due to history of alcohol use Exam Vital Signs (Last) Date Time Temp Pulse Resp B/P Pulse Ox O2 Delivery O2 Flow Rate FiO2 05/20/16 08:17 36.7 92 106/61 98 Room Air 05/20/16 03:10 18 05/19/16 18:57 5 Test 05/16/16 14:00 05/16/16 18:05 05/17/16 03:40 05/18/16 09:42 Troponin T < 0.010ug/L (0.0-0.011) Hold Red Top Tube Received (Received) Hold [place] Top Tube Received (Received) Alcohols 13mg/dL (0-10) Urine Color [place] (YELLOW) Urine Appearance Clear (CLEAR,HAZY) Urine pH (5.0-8.0) Urine Specific [place] 1.024 (1.003-1.035) Urine Protein mg/dL (NEG,TRACE) Urine Glucose (UA) mg/dL (NEGATIVE) Urine Ketones mg/dL (NEGATIVE) Urine Occult Blood (NEGATIVE) Urine Nitrite (NEGATIVE) Urine Bilirubin (NEGATIVE) Urine Urobilinogen mg/dL (NORMAL) Urine Leukocyte Esterase (NEGATIVE) Urine RBC 0-2/hpf (0-2) Urine WBC 0-5/hpf (0-5) Urine Epithelial Cells Moderate/hpf (NONE-MOD) Urine Crystals None seen (NONE SEEN) Urine Bacteria None/hpf (NONE-FEW) Urine Hyaline Casts None/lpf (NONE) Urine Granular Casts None seen (NONE SEEN) Urine Waxy Casts None seen (NONE SEEN) Urine Red Blood Cell Casts None seen (NONE SEEN) Urine White Blood Cell Casts None seen (NONE SEEN) Urine Mucus None seen (None Seen) Urine Trichomonas None seen (NONE SEEN) Urine Yeast None (NONE SEEN) Urinalysis Comment Color interference Urine Culture Reflexed Not indicated Band Neutrophils % 1% (1-5) Reticulocyte Count,Calculated 0.1% (0.6-2.6) Prothrombin Time 13.8sec (8.1-12.5) Prothromb Time International Ratio 1.28ratio Activated Partial Thromboplast Time 27.8sec (22.8-33.0) Phosphorus Level 2.9mg/dL (2.5-4.9) Iron Level 106ug/dL (35-150) Total Iron Binding Capacity 141ug/dL (250-450) Percent Iron Saturation 75%sat (15-50) Unsaturated Iron Binding 35.4ug/dL Ferritin 876ng/mL (30-400) Triglycerides Level 63mg/dL (0-149) Cholesterol Level 77mg/dL (100-199) LDL Cholesterol, Calculated 37.400mg/dL (0-99) VLDL Cholesterol 12.600mg/dL HDL Cholesterol 27mg/dL (>39) Cholesterol/HDL Ratio 2.85 (0.0-4.4) Vitamin B12 Level 1114pg/mL (211-946) Thyroid Stimulating Hormone (TSH) 4.180uIU/mL (0.450-4.500) Magnesium Level 1.7mg/dL (1.6-2.6) Test 05/19/16 03:05 05/20/16 03:20 Neutrophils (%) (Auto) 58.4% (40-74) Lymphocytes (%) (Auto) 20.7% (14-46) Monocytes (%) (Auto) 16.1% (4-12) Eosinophils (%) (Auto) 3.4% (0-5) Basophils (%) (Auto) 0.5% (0-3) Total Bilirubin 1.5mg/dL (0.0-1.2) Aspartate Amino Transf (AST/SGOT) 36U/L (0-50) Alanine Aminotransferase (ALT/SGPT) 12U/L (0-44) Alkaline Phosphatase 83U/L (25-160) Total Protein 5.1g/dL (6.4-8.4) Albumin 2.3g/dL (3.4-5.0) White Blood Count 4.7th/mm3 (3.8-10.1) Red Blood Count 2.91mil/mm3 (4.40-5.80) Hemoglobin 8.4g/dL (13.8-17.2) Hematocrit 25.1% (41.0-50.0) Mean Corpuscular Volume 86.3fL (81-100) Mean Corpuscular Hemoglobin 28.9pg (27.0-35.0) Mean Corpuscular Hemoglobin Concent 33.5% (32.0-37.0) Red Cell Distribution Width 16.2% (12.3-15.4) Platelet Count 192bil/L (150-400) Sodium Level 135mEq/L (134-144) Potassium Level 2.9mEq/L (3.5-5.2) Chloride Level 95mEq/L (97-108) Carbon Dioxide Level 24mmol/L (18-29) Blood Urea Nitrogen 4mg/dL (8-27) Creatinine 0.67mg/dL (0.76-1.27) Estimat Glomerular Filtration Rate 129mL/min (>59) Glucose Level 117mg/dL (60-99) Calcium Level 7.4mg/dL (8.5-10.1) Discharge Medications No Active Prescriptions or Reported Meds Followup Plan Follow-up plan Follow-up with gastroenterology in 2 weeks for biopsy results Discharge Diet: No restrictions Discharge Activity: No restrictions Follow-up with PCP in: 1 week Time spent 45 minutes Gui Craig DO May 20, 2016 11:30
--- NOTE | 2016-05-24 14:07 | PATH ---
SURGICAL PATHOLOGY Attending Physician:Aldair Noriega CASE STATUS: Signed Out PATIENT NAME: GABO HUNT PID: [id number] : 1955 DATE COLLECTED:05/19/2016 00:00 SPECIMEN: 1: Colon, Biopsy 2: Colon, Biopsy 3: Colon, Biopsy 4: Colon, Biopsy CLINICAL HISTORY: 1). TRANSVERSE POLYP 2). ASCENDING POLYPS 3). COLON POLYP 4). RECTOSIGMOID POLYPS FINAL DIAGNOSIS: 1. Transverse Colon Polyp: Polypoid mixed tubular and villiform adenoma, apparently excised. 2. Ascending Colon Polyps: Polypoid and mixed tubular and villiform adenoma with no identifiable definite stalk. 3. Colon Polyp: Tubular adenoma involving all biopsy fragments. 4. Rectosigmoid Polyps: Polypoid tubular adenoma with no definite identifiable stalk. ICD10 D12.3 GROSS DESCRIPTION: The specimen is received in four formalin filled containers labeled with the patient's name. 1). The specimen is sublabeled "transverse polyp" and consists of a 1.3 x 1.3 x 2.1 CM portion of tissue. The specimen is sectioned into multiple pieces and entirely submitted in cassettes 1A, 1B, 1C. 2). The specimen is sublabeled "ascending polyp" and consists of a 2.0 x 1.6 x 1.5 CM portion of tissue. The specimen is sectioned into multiple pieces and entirely submitted in cassettes 2A, 2B, 2C. 3). The specimen is sublabeled "colon polyp" and consists of 5 portions of tissue which aggregate to 0.6 x 0.6 x 0.4 CM. The specimen is entirely submitted in cassette 3A. 4). The specimen is sublabeled "recto sigmoid polyps" and consists of a 1.2 x 1.2 x 1.0 CM portion of tissue. The specimen is sectioned into multiple pieces and entirely submitted in cassette 4A. 05/20/2016 [facility] ICD-9 CODES: CPT CODES: 1: 22996 2: 11029 3: 86244 4: 36942 Electronically Signed Out Gregorio Lincoln MD [facility] [place] [address] Technical component performed at [facility], [address] [place] [address] Ave[address], [place], [address]
--- NOTE | 2016-05-25 16:05 | PATH ---
SURGICAL PATHOLOGY Attending Physician:Aldair Noriega CASE STATUS: Signed Out * Amended * PATIENT NAME: GABO HUNT PID: [id number] : 1955 DATE COLLECTED:05/17/2016 00:00 SPECIMEN: 1: Duodenum, Biopsy 2: Duodenum, Biopsy 3: Stomach, Antrum, Biopsy 4: Esophagus, Biopsy CLINICAL HISTORY: 1). DUODENAL 2 BIOPSIES (D2 BIOPSIES) 2). DUODENAL 1 BIOPSIES (D1 BIOPSIES) 3). ANTRAL SUBMUCOSAL LESION BIOPSIES 4). SCHATZKIS RING BIOPSIES FINAL DIAGNOSIS: 1. Duodenal 2, Biopsies: Superficial portions of duodenal mucosa with nonspecific active duodenitis. No pathogenic organisms identified. Negative for dysplasia and neoplasia. 2. Duodenal 1 Biopsies: Superficial portions of duodenal mucosa with nonspecific active duodenitis. No pathogenic organisms identified. Negative for dysplasia and neoplasia. 3. Antral Submucosal Lesion Biopsies: Superficial portions of gastric antral mucosa with mild chronic gastritis. Negative for H. pylori organisms by immunohistochemistry studies. No submucosal tissue or mass identified. 4. Schatzki's Ring Biopsies: Small, superficial portion of mildly hyperplastic squamous mucosa with otherwise no significant histomorphologic abnormality. No glandular epithelium identified for evaluation. ICD10 K29.80 This case was reviewed and interpreted by Dr. Faith Bland. The final diagnosis is unchanged. This amendment is issued in order for the report to cross the interface and be available in the hospital electronic medical record. GROSS DESCRIPTION: The specimen is received in four formalin filled containers labeled with the patient's name. 1). The specimen is sublabeled "duodenal D2" and consists of 2 portions of tissue which aggregate to 0.3 x 0.3 x 0.2 CM. The specimen is entirely submitted in cassette 1A. 2). The specimen is sublabeled "duodenal D1" and consists of a 0.3 x 0.2 x 0.2 CM portion of tissue which is entirely submitted in cassette 2A. 3). The specimen is sublabeled "antral submucosal lesion" and consists of a 0.3 x 0.2 x 0.2 CM portion of tissue which is entirely submitted in cassette 3A. 4). The specimen is sublabeled "Schatzki's ring" and consists of a 0.2 x 0.2 x 0.2 CM portion of tissue which is entirely submitted in cassette 4A. 05/18/2016 [facility] MICRO DESCRIPTION: IMMUNOHISTOCHEMISTRY: Block 3A: H. pylori: Negative ICD-9 CODES: CPT CODES: 1: 72142 2: 11184 3: 78940, 76791 4: 25034 AMENDMENT(S): Amended: 05/25/2016 by Soni Perez Reason:Miscellaneous The final diagnosis is unchanged. This amendment is issued in order for the report to cross the interface and be available in the hospital electronic medical record. Previous Signout Date: 05/21/2016 Electronically Signed Out Ira Frost MD [facility] [address], [place] [address] Technical component performed at [facility], [address] [place] [address] [address], [place], [address]
== END 2016-05-20 13:00 | disposition home or self-care (01) | DRG 378 ==
LOC: SED 13:29 → OBSVTOIN 17:28 → MPC 17:28 → PCC 05-17 04:23
PROVIDERS: ADMIT Internal Medicine; ATTEND Internal Medicine
PROC: 0DB68ZX Excision of Stomach, Via Natural or Artificial Opening Endoscopic, Diagnostic (ICD-10-PCS; 2016-05-17)
PROC: 0DB38ZX Excision of Lower Esophagus, Via Natural or Artificial Opening Endoscopic, Diagnostic (ICD-10-PCS; 2016-05-17)
PROC: 30233N1 Transfusion of Nonautologous Red Blood Cells into Peripheral Vein, Percutaneous Approach (ICD-10-PCS; 2016-05-17)
PROC: 0DB98ZX Excision of Duodenum, Via Natural or Artificial Opening Endoscopic, Diagnostic (ICD-10-PCS; principal; 2016-05-17 14:30)
PROC: 0DBK8ZX Excision of Ascending Colon, Via Natural or Artificial Opening Endoscopic, Diagnostic (ICD-10-PCS; 2016-05-19)
PROC: 0DBL8ZX Excision of Transverse Colon, Via Natural or Artificial Opening Endoscopic, Diagnostic (ICD-10-PCS; 2016-05-19)
PROC: 0DBP8ZX Excision of Rectum, Via Natural or Artificial Opening Endoscopic, Diagnostic (ICD-10-PCS; 2016-05-19)
PROC: 0DBN8ZX Excision of Sigmoid Colon, Via Natural or Artificial Opening Endoscopic, Diagnostic (ICD-10-PCS; 2016-05-19)
DX: K92.2 Gastrointestinal hemorrhage, unspecified (principal); D62 Acute posthemorrhagic anemia; G45.9 Transient cerebral ischemic attack, unspecified; F10.239 Alcohol dependence with withdrawal, unspecified; E44.0 Moderate protein-calorie malnutrition; Z68.1 Body mass index [BMI] 19.9 or less, adult; E87.6 Hypokalemia; K22.8 Other specified diseases of esophagus; Y90.0 Blood alcohol level of less than 20 mg/100 ml; K44.9 Diaphragmatic hernia without obstruction or gangrene; K64.4 Residual hemorrhoidal skin tags; K64.8 Other hemorrhoids; J44.9 Chronic obstructive pulmonary disease, unspecified; J45.909 Unspecified asthma, uncomplicated; I10 Essential (primary) hypertension; Z87.891 Personal history of nicotine dependence